=== PATIENT | male | born 1945 | race Caucasian/White ===

== ENCOUNTER 2017-07-20 09:53 | Inpatient (IN) | payer MEDICARE, BC ==
[2017-07-20] MEDS ORDERED: ASPIRIN 81 MG PO STA (10:19)
[2017-07-20] MEDS ORDERED: NITROGLYCERIN OINT 1 INCH/GM PACKET TOPICAL STA (10:19)
--- NOTE | 2017-07-20 10:21 | ED ---
General Adult HPI - General Chief complaint: Chest Pain Stated complaint: chest pain Time Seen by Provider: 07/20/17 10:00 Source: patient, RN notes reviewed Mode of arrival: wheelchair Limitations: no limitations - History of Present Illness Initial comments: This is a 71-year-old male who has past medical history of a CABG high blood pressure and high cholesterol. Patient comes in today because he woke up with chest pain radiated down both of his arms. Patient denies any diaphoresis. Patient denies shortness of breath. Patient denies nausea. Patient does state however this feels like the same pain he had prior to his bypass. Patient states he has not had any recent fever chills per patient denies any palpitations. Patient denies any dizziness lightheadedness or near syncopal episode. Patient denies any abdominal pain. Patient denies any vomiting or diarrhea. Patient denies any exacerbation of pain with movement. - Related Data Home Medications Medication Instructions Recorded Confirmed No Known Home Medications [No 12/28/14 12/28/14 Known Home Medications] Allergies Allergy/AdvReac Type Severity Reaction Status Date / Time No Known Allergies Allergy Verified 07/20/17 09:58 Review of Systems ROS Statement: Those systems with pertinent positive or pertinent negative responses have been documented in the HPI. ROS Other: All systems not noted in ROS Statement are negative. Past Medical History Past Medical History: Coronary Artery Disease (CAD), Chest Pain / Angina, Hyperlipidemia, Hypertension, Myocardial Infarction ([place]) History of Any Multi-Drug Resistant Organisms: None Reported Past Surgical History: Adenoidectomy, Appendectomy, Coronary Bypass/CABG, Tonsillectomy Past Psychological History: No Psychological Hx Reported Smoking Status: Never smoker Past Alcohol Use History: None Reported Past Drug Use History: None Reported General Exam - General Exam Comments Initial Comments: GENERAL: Patient is well-developed and well-nourished. Patient is nontoxic and well- hydrated and is in mild distress. ENT: Neck is soft and supple. No significant lymphadenopathy is noted. Oropharynx is clear. Moist mucous membranes. Neck has full range of motion without eliciting any pain. EYES: The sclera were anicteric and conjunctiva were pink and moist. Extraocular movements were intact and pupils were equal round and reactive to light. Eyelids were unremarkable. PULMONARY: Unlabored respirations. Good breath sounds bilaterally. No audible rales rhonchi or wheezing was noted. CARDIOVASCULAR: There is a regular rate and rhythm without any murmurs gallops or rubs. ABDOMEN: Soft and nontender with normal bowel sounds. No palpable organomegaly was noted. There is no palpable pulsatile mass. SKIN: Skin is clear with no lesions or rashes and otherwise unremarkable. NEUROLOGIC: Patient is alert and oriented x3. Cranial nerves II through XII are grossly intact. Motor and sensory are also intact. Normal speech, volume and content. Symmetrical smile. MUSCULOSKELETAL: Normal extremities with adequate strength and full range of motion. No lower extremity swelling or edema. No calf tenderness. LYMPHATICS: No significant lymphadenopathy is noted PSYCHIATRIC: Normal psychiatric evaluation. Normal interpersonal interactions appears functionally intact in deals appropriately with others. No signs of depression. No signs of anxiety. Limitations: no limitations Course Vital Signs 07/20/17 09:56 Temperature 97.4 F L Pulse Rate 55 L Respiratory 16 Rate Blood Pressure 195/89 O2 Sat by Pulse 100 Oximetry Medical Decision Making - Medical Decision Making EKG shows sinus bradycardia 53 bpm VA interval 184 QRS is 114 Q-T intervals 456 QTC is 427. Patient's EKG shows no ST segment elevation or depression or T wave abnormalities are noted. Patient's chest x-ray shows no acute abnormality. After patient was on oxygen and nitro paste she started to feel better. I started the patient on heparin because of his significant risk factors and his clinical presentation being similar to his previous pain when he had his bypass. I spoke with Dr. Thomas and he agreed to admit the patient admitted the patient. I consult cardiology and I continue the heparin Nitropaste and aspirin on the floor - Lab Data Result diagrams: 07/20/17 10:16 07/20/17 10:16 Lab Results 07/20/17 07/20/17 07/20/17 Range/Units 10:16 10:16 10:16 WBC 11.0 H (3.8-10.6) k/uL RBC 4.54 (4.30-5.90) m/uL Hgb 14.5 (13.0-17.5) gm/dL Hct 42.9 (39.0-53.0) % MCV 94.6 (80.0-100.0) fL MCH 32.1 (25.0-35.0) pg MCHC 33.9 (31.0-37.0) g/dL RDW 12.3 (11.5-15.5) % Plt Count 180 (150-450) k/uL Neutrophils % 80 % Lymphocytes % 12 % Monocytes % 6 % Eosinophils % 1 % Basophils % 0 % Neutrophils # 8.8 H (1.3-7.7) k/uL Lymphocytes # 1.3 (1.0-4.8) k/uL Monocytes # 0.6 (0-1.0) k/uL Eosinophils # 0.1 (0-0.7) k/uL Basophils # 0.0 (0-0.2) k/uL PT (9.0-12.0) sec INR (<1.2) APTT (22.0-30.0) sec Sodium 138 (137-145) mmol/L Potassium 4.0 (3.5-5.1) mmol/L Chloride 104 (98-107) mmol/L Carbon Dioxide 26 (22-30) mmol/L Anion Gap 8 mmol/L BUN 20 (9-20) mg/dL Creatinine 0.94 (0.66-1.25) mg/dL Est GFR (MDRD) Af Amer >60 (>60 ml/min/1.73 sqM) Est GFR (MDRD) Non-Af >60 (>60 ml/min/1.73 sqM) Glucose 70 L (74-99) mg/dL Calcium 9.2 (8.4-10.2) mg/dL Magnesium 1.8 (1.6-2.3) mg/dL Total Bilirubin 0.5 (0.2-1.3) mg/dL AST 21 (17-59) U/L ALT 19 L (21-72) U/L Alkaline Phosphatase 63 (38-126) U/L Total Creatine Kinase 39 L (55-170) U/L CK-MB (CK-2) 0.7 (0.0-2.4) ng/mL CK-MB (CK-2) Rel Index 1.8 Troponin I <0.012 (0.000-0.034) ng/mL Total Protein 7.0 (6.3-8.2) g/dL Albumin 4.0 (3.5-5.0) g/dL 07/20/17 Range/Units 10:16 WBC (3.8-10.6) k/uL RBC (4.30-5.90) m/uL Hgb (13.0-17.5) gm/dL Hct (39.0-53.0) % MCV (80.0-100.0) fL MCH (25.0-35.0) pg MCHC (31.0-37.0) g/dL RDW (11.5-15.5) % Plt Count (150-450) k/uL Neutrophils % % Lymphocytes % % Monocytes % % Eosinophils % % Basophils % % Neutrophils # (1.3-7.7) k/uL Lymphocytes # (1.0-4.8) k/uL Monocytes # (0-1.0) k/uL Eosinophils # (0-0.7) k/uL Basophils # (0-0.2) k/uL PT 10.9 (9.0-12.0) sec INR 1.1 (<1.2) APTT 24.7 (22.0-30.0) sec Sodium (137-145) mmol/L Potassium (3.5-5.1) mmol/L Chloride (98-107) mmol/L Carbon Dioxide (22-30) mmol/L Anion Gap mmol/L BUN (9-20) mg/dL Creatinine (0.66-1.25) mg/dL Est GFR (MDRD) Af Amer (>60 ml/min/1.73 sqM) Est GFR (MDRD) Non-Af (>60 ml/min/1.73 sqM) Glucose (74-99) mg/dL Calcium (8.4-10.2) mg/dL Magnesium (1.6-2.3) mg/dL Total Bilirubin (0.2-1.3) mg/dL AST (17-59) U/L ALT (21-72) U/L Alkaline Phosphatase (38-126) U/L Total Creatine Kinase (55-170) U/L CK-MB (CK-2) (0.0-2.4) ng/mL CK-MB (CK-2) Rel Index Troponin I (0.000-0.034) ng/mL Total Protein (6.3-8.2) g/dL Albumin (3.5-5.0) g/dL Critical Care Time Critical Care Time: Yes Total Critical Care Time: 35 Disposition Clinical Impression: Unstable angina pectoris Disposition: ADMITTED IP TO THIS HOSP Referrals: Arthur Acosta MD [Primary Care Provider] - 1-2 days Time of Disposition: 11:28
[2017-07-20 10:37] LABS: Basophils % (A) 0 %; CH 32.7; CHCM 34.7; Eosinophils # (A) 0.1 k/uL (0-0.7); Eosinophils % (A) 1 %; HCT 42.9 % (39.0-53.0); HGB 14.5 gm/dL (13.0-17.5); Luc # (Auto) 0.09; Luc % (Auto) 1; Lymphocytes # (A) 1.3 k/uL (1.0-4.8); Lymphocytes % (A) 12 %; MCH 32.1 pg (25.0-35.0); MCHC 33.9 g/dL (31.0-37.0); MCV 94.6 fL (80.0-100.0); Mean Platelet Volume 6.5; Monocytes # (A) 0.6 k/uL (0-1.0); Monocytes % (A) 6 %; Neutrophils # (A) 8.8 k/uL (1.3-7.7); Neutrophils % (A) 80 %; RBC 4.54 m/uL (4.30-5.90); RDW 12.3 % (11.5-15.5); WBC (Perox) 10.97
--- NOTE | 2017-07-20 10:45 | XR ---
EXAMINATION TYPE: XR chest 2V DATE OF EXAM: 07/20/2017 HISTORY: Chest Pain. REFERENCE: NONE. FINDINGS: There has been a midline sternotomy. The lungs are overinflated. The heart is mildly enlarged. There is some scarring or atelectasis at th e right upper lobe. Lungs otherwise clear. Pleural space are clear. IMPRESSION: 1. COPD. 2. MILD CARDIOMEGALY.
[2017-07-20 10:46] LABS: INR 1.1 (<1.2); Partial Thromboplastin Time 24.7 sec (22.0-30.0); Prothrombin Time 10.9 sec (9.0-12.0)
[2017-07-20 10:48] LABS: ALT 19 U/L (21-72); AST 21 U/L (17-59); Alkaline Phosphatase 63 U/L (38-126); Anion Gap 8 mmol/L; Blood Urea Nitrogen 20 mg/dL (9-20); Calcium 9.2 mg/dL (8.4-10.2); Carbon Dioxide 26 mmol/L (22-30); Chloride 104 mmol/L (98-107); Glucose 70 mg/dL (74-99); Magnesium 1.8 mg/dL (1.6-2.3); Non-African American GFR(MDRD) >60 (>60 ml/min/1.73 sqM); Sodium 138 mmol/L (137-145); Total Bilirubin 0.5 mg/dL (0.2-1.3)
[2017-07-20 10:57] LABS: Creatine Kinase 39 U/L (55-170)
[2017-07-20 11:10] LABS: Creatine Kinase MB 0.7 ng/mL (0.0-2.4); Troponin I <0.012 ng/mL (0.000-0.034)
[2017-07-20] MEDS ORDERED: HEPARIN SODIUM,PORCINE 5,000 UNIT/ML 1 ML VIAL IV ONE (11:27)
[2017-07-20] MEDS ORDERED: NITROGLYCERIN SL TABS 0.4 MG TAB SUBLINGUAL PRN (11:29)
[2017-07-20] MEDS ORDERED: HEPARIN SODIUM,PORCINE/D5W PMX 25,000 UNIT in DEXTROSE/WATER 1 500ML.BAG IV SCH (11:30)
[2017-07-20] MEDS ORDERED: hydrALAZINE HCL 20 MG/ML 1 ML VIAL IVP STA (12:17)
[2017-07-20 16:53] LABS: Creatine Kinase 41 U/L (55-170)
[2017-07-20 17:06] LABS: Creatine Kinase MB 0.6 ng/mL (0.0-2.4); Troponin I <0.012 ng/mL (0.000-0.034)
[2017-07-20] MEDS: NITROGLYCERIN OINT 1 INCH/GM PACKET TOPICAL SCH ×2 (18:31→23:59)
[2017-07-20] MEDS ORDERED: HEPARIN SODIUM,PORCINE 5,000 UNIT/ML 1 ML VIAL IV PRN (20:40)
[2017-07-20 23:06] LABS: Creatine Kinase 57 U/L (55-170)
[2017-07-20 23:20] LABS: Creatine Kinase MB 0.8 ng/mL (0.0-2.4); Troponin I <0.012 ng/mL (0.000-0.034)
[2017-07-21] MEDS: NITROGLYCERIN OINT 1 INCH/GM PACKET TOPICAL SCH ×2 (06:17→11:57)
[2017-07-21] MEDS ORDERED: NON-FORMULARY DRUG (Aspirin Ec 81 MG) PO SCH (09:00)
[2017-07-21] MEDS ORDERED: LISINOPRIL-HCTZ 20-12.5 MG 1 EACH TAB PO SCH (09:00)
[2017-07-21] MEDS ORDERED: AMINOPHYLLINE 500 MG/20 ML VIAL IV PRN (09:56)
[2017-07-21] MEDS ORDERED: REGADENOSON 0.4 MG/5 ML SYRINGE IV ONE (09:56)
--- NOTE | 2017-07-21 10:12 | P.CRDCN ---
History of Present Illness Consult date: 07/21/17 History of present illness: This is a pleasant 71-year-old male with past medical history significant for coronary artery disease with subsequent three-vessel bypass in the s, hyperlipidemia and hypertension. He presents to the hospital with complaints of right sided chest pain. He states when he woke up yesterday the pain was there and radiated down both arms. He denies associated shortness of breath, nausea, dizziness, palpitations or diaphoresis. He says that his vision felt very cloudy as well. He states the pain persisted all day yesterday and was still there when he went to sleep last night. At the time of my examination he is chest pain-free. The pain is not reproducible and is not associated with inspiration. He states he used to follow-up with Dr. Olsen but has not seen a automotive brake technician or had cardiac evaluation in the previous 5 years at least. At the time of my examination he complains of ongoing mild chest discomfort. EKG reveals sinus bradycardia with incomplete right bundle branch block. Chest xray reveals COPD and cardiomegaly. Cardiac enzymes negative x3. WBC 11, potassium 4.0, magnesium 1.8, LDL 74, HDL 44, triglycerides 63, total cholesterol 63. Blood pressure 183/82 with heart rate 59. Blood pressure has been consistently elevated since admission. Cardiac medications include lopressor 25 mg daily, zestroretic 20/12.5 daily, zocor 10 and aspirin 81 mg. Review of Systems CONSTITUTIONAL: Denies fever. Denies chills. EYES: Complains of blurred vision, resolved. Denies vision changes. Denies eye pain. EARS, NOSE, MOUTH & THROAT: Denies headache. Denies sore throat. Denies ear pain. CARDIOVASCULAR: Complains of right sided chest pain. Denies shortness of breath. Denies orthopnea. Denies PND. Denies palpitations. RESPIRATORY: Denies cough. GASTROINTESTINAL: Denies abdominal pain. Denies diarrhea. Denies constipation. Denies nausea. Denies vomitng. MUSCULOSKELETAL: Denies myalgias. INTEGUMENTARY: Denies pruitis. Denies rash. NEUROLOGIC: Denies numbness. Denies tingling. Denies weakness. PSYCHIATRIC: Denies anxiety. Denies depression. ENDOCRINE: Denies fatigue. Denies weight change. Denies polydipsia. Denies polyurina. GENITOURINARY: Denies burning, hematuria or urgency with micturation. HEMATOLOGIC: Denies history of anemia. Denies bleeding. Past Medical History Past Medical History: Coronary Artery Disease (CAD), Chest Pain / Angina, Hyperlipidemia, Hypertension History of Any Multi-Drug Resistant Organisms: None Reported Past Surgical History: Adenoidectomy, Appendectomy, Coronary Bypass/CABG, Tonsillectomy Additional Past Surgical History / Comment(s): 3 vessel CABG Past Anesthesia/Blood Transfusion Reactions: No Reported Reaction Additional Past Anesthesia/Blood Transfusion Reaction / Comment(s): no blood transfusion before Past Psychological History: No Psychological Hx Reported Smoking Status: Never smoker Past Alcohol Use History: None Reported Past Drug Use History: None Reported - Past Family History Father Additional Family Medical History / Comment(s): Brain Anurysm Mother Family Medical History: Dementia Additional Family Medical History / Comment(s): per pt a "bowel busted" Medications and Allergies Home Medications Medication Instructions Recorded Confirmed Type Aspirin EC [Ecotrin Low Dose] 81 mg PO DAILY 07/20/17 07/20/17 History Lisinopril-Hctz 20-12.5 mg 1 tab PO DAILY 07/20/17 07/20/17 History [Zestoretic 20-12.5] Metoprolol Tartrate [Lopressor] 25 mg PO DAILY 07/20/17 07/20/17 History Simvastatin [Zocor] 10 mg PO DAILY 07/20/17 07/20/17 History Allergies Allergy/AdvReac Type Severity Reaction Status Date / Time No Known Allergies Allergy Verified 07/20/17 11:44 Physical Exam Vitals: Vital Signs Temp Pulse Pulse Resp BP BP Pulse Ox 07/21/17 07:44 98.9 F 59 L 18 183/82 96 07/21/17 04:00 18 07/21/17 03:50 97.9 F 57 L 18 163/77 96 07/21/17 00:00 18 07/20/17 23:51 97.9 F 61 18 159/77 98 07/20/17 20:00 98.3 F 63 18 179/82 99 07/20/17 16:00 97.7 F 67 16 149/77 99 07/20/17 14:20 97.8 F 63 14 165/72 99 07/20/17 14:01 97.4 F L 52 L 18 188/79 100 07/20/17 13:24 52 L 18 188/79 07/20/17 13:00 50 L 18 188/79 07/20/17 12:38 48 L 18 219/94 100 07/20/17 12:08 50 L 18 205/108 100 07/20/17 09:56 97.4 F L 55 L 16 195/89 100 Intake and Output 07/20/17 07/21/17 07/21/17 22:59 06:59 14:59 Intake Total 260.586 Balance 260.586 Intake: Intake, IV Titration 160.586 Amount Heparin Sodium,Porcine/ 160.586 D5w Pmx 25,000 unit In Dextrose/Water 1 500ml. bag @ 11.6 UNITS/KG/HR 19 .99 mls/hr IV .Q24H [facility] Rx#:[id number] Oral 100 Other: Voiding Method Toilet Toilet # Voids 1 1 GENERAL: This is a 71-year-old male in no apparent distress at the time of my examination. HEENT: Head is atraumatic, normocephalic. Pupils are equal, round. Sclerae anicteric. Conjunctivae are clear. Mucous membranes of the mouth are moist. Neck is supple. There is no jugular venous distention. No carotid bruit is heard. LUNGS: Clear to auscultation no wheezes, rales or rhonchi. No chest wall tenderness is noted on palpation or with deep breathing. HEART: Regular rate and rhythm without murmurs, rubs or gallops. S1 and S2 heard. ABDOMEN: Soft, nontender. Bowel sounds are heard. No organomegaly noted. EXTREMITIES: 2+ peripheral pulses with no evidence of peripheral edema and no calf tenderness noted. NEUROLOGIC: Patient is awake, alert and oriented x3. Results 07/20/17 10:16 07/20/17 10:16 Cardiac Enzymes 07/20/17 07/20/17 07/20/17 Range/Units 10:16 10:16 16:25 AST 21 (17-59) U/L CK-MB (CK-2) 0.7 0.6 (0.0-2.4) ng/mL Troponin I <0.012 <0.012 (0.000-0.034) ng/mL 07/20/17 Range/Units 22:20 AST (17-59) U/L CK-MB (CK-2) 0.8 (0.0-2.4) ng/mL Troponin I <0.012 (0.000-0.034) ng/mL Coagulation 07/20/17 07/20/17 07/21/17 Range/Units 10:16 18:33 02:51 PT 10.9 (9.0-12.0) sec APTT 24.7 39.6 H 70.1 H (22.0-30.0) sec Lipids 07/21/17 Range/Units 02:51 Triglycerides 63 (<150) mg/dL Cholesterol 131 (<200) mg/dL HDL Cholesterol 44 (40-60) mg/dL CBC 07/20/17 Range/Units 10:16 WBC 11.0 H (3.8-10.6) k/uL RBC 4.54 (4.30-5.90) m/uL Hgb 14.5 (13.0-17.5) gm/dL Hct 42.9 (39.0-53.0) % Plt Count 180 (150-450) k/uL Comprehensive Metabolic Panel 07/20/17 Range/Units 10:16 Sodium 138 (137-145) mmol/L Potassium 4.0 (3.5-5.1) mmol/L Chloride 104 (98-107) mmol/L Carbon Dioxide 26 (22-30) mmol/L BUN 20 (9-20) mg/dL Creatinine 0.94 (0.66-1.25) mg/dL Glucose 70 L (74-99) mg/dL Calcium 9.2 (8.4-10.2) mg/dL AST 21 (17-59) U/L ALT 19 L (21-72) U/L Alkaline Phosphatase 63 (38-126) U/L Total Protein 7.0 (6.3-8.2) g/dL Albumin 4.0 (3.5-5.0) g/dL Current Medications Generic Name Dose Route Start Last Admin Trade Name Freq PRN Reason Stop Dose Admin Aspirin 325 mg 07/21/17 09:00 Aspirin PO DAILY [facility] Atorvastatin Calcium 10 mg 07/21/17 09:00 Lipitor PO DAILY [facility] Lisinopril/HCTZ 1 each 07/21/17 09:00 Zestoretic 20-12.5 PO DAILY [facility] Heparin Sodium (Porcine) 0 unit 07/20/17 20:40 07/20/17 20:48 Heparin IV 4,000 unit PER PROTOCOL PRN Administration Low PTT Protocol Heparin Sodium/Dextrose 25,000 500 mls @ 19.99 mls/hr 07/20/17 11:30 20:49 unit/ IV Solution IV 14.73 units/kg/hr .Q24H [facility] 25.4 mls/hr Protocol Titration 11.6 UNITS/KG/HR Metoprolol Tartrate 25 mg 07/21/17 09:00 Lopressor PO DAILY [facility] Nitroglycerin 1 inch 07/20/17 18:00 07/20/17 23:59 Nitro-Bid Oint TOPICAL 1 inch Q6HR [facility] Administration Nitroglycerin 0.4 mg 07/20/17 11:29 Nitrostat SUBLINGUAL Q5M PRN Chest Pain Intake and Output 07/20/17 07/21/17 07/21/17 22:59 06:59 14:59 Intake Total 260.586 Balance 260.586 Intake: Intake, IV Titration 160.586 Amount Heparin Sodium,Porcine/ 160.586 D5w Pmx 25,000 unit In Dextrose/Water 1 500ml. bag @ 11.6 UNITS/KG/HR 19 .99 mls/hr IV .Q24H [facility] Rx#:[id number] Oral 100 Other: Voiding Method Toilet Toilet # Voids 1 1 07/20/17 10:16 07/20/17 10:16 Assessment and Plan Assessment: ASSESSMENT 1. Unstable angina 2. Hypertension, uncontrolled 3. Hyperlipidemia controlled on Zocor 4. Known coronary artery disease with history of triple vessel bypass PLAN Obtain 2-D echocardiogram and Doppler study to assess cardiac structure/ function and Lexiscan Cardiolite stress test to evaluate for an acute coronary event. Increase zestoretic and continue with lopressor at current dose. May consider amlopdipine if no response from increased zestoretic. Nurse Practitioner note has been reviewed, I agree with a documented findings and plan of care. Patient was seen and examined.
--- NOTE | 2017-07-21 10:51 | ECHOF ---
Referral Reason:chest pain MEASUREMENTS -------- HEIGHT: 185.4 cm WEIGHT: 91.6 kg BP: 183/82 RVIDd: 3.4 cm (< 3.3) IVSd: 1.1 cm (0.6 - 1.1) LVIDd: 5.4 cm (3.9 - 5.3) LVPWd: 1.1 cm (0.6 - 1.1) IVSs: 1.7 cm LVIDs: 3.8 cm LVPWs: 1.8 cm LAESV Index (A-L): 21.81 ml/m Ao Diam: 3.9 cm (2.0 - 3.7) AV Cusp: 2.0 cm (1.5 - 2.6) LA Diam: 3.3 cm (2.7 - 3.8) MV E Dennis: 0.47 m/s MV DecT: 332 ms MV A Dennis: 0.94 m/s MV E/A Ratio: 0.50 RAP: 5.00 mmHg RVSP: 9.06 mmHg FINDINGS -------- Sinus rhythm. This was a technically adequate study. The left ventricular size is normal. There is borderline concentric left ventricular hypertrophy. Overall left ventricular systolic function is normal with, an EF between 55 - 60 %. The right ventricle is normal in size and function. Normal LA size by volume 22+/-6 ml/m2. The right atrium is normal in size. Aortic valve is trileaflet and is mildly thickened. There is no evidence of aortic regurgitation. There is no evidence of aortic stenosis. The mitral valve leaflets are mildly thickened. There is trace mitral regurgitation. Trace tricuspid regurgitation present. Right ventricular systolic pressure is normal at < 35 mmHg. There is no evidence of pulmonary hypertension. The pulmonic valve was not well visualized. The aortic root size is normal. IVC Not well visulized. The pericardium is normal. There is no pericardial effusion. CONCLUSIONS -------- 1. Sinus rhythm. 2. Trace tricuspid regurgitation present. 3. Right ventricular systolic pressure is normal at < 35 mmHg. 4. There is no evidence of pulmonary hypertension. 5. The pulmonic valve was not well visualized. 6. The aortic root size is normal. 7. IVC Not well visulized. 8. There is no pericardial effusion. 9. This was a technically adequate study. 10. The left ventricular size is normal. 11. There is borderline concentric left ventricular hypertrophy. 12. Overall left ventricular systolic function is normal with, an EF between 55 - 60 %. 13. Normal LA size by volume 22+/-6 ml/m2. 14. Aortic valve is trileaflet and is mildly thickened. 15. The mitral valve leaflets are mildly thickened. 16. There is trace mitral regurgitation. ANALYST COMPETITIVE INTELLIGENCE: Samson Rosado RDCS
[2017-07-21 11:14] LABS: Hemoglobin A1C 5.1 % (4.2-6.1)
[2017-07-21] MEDS: METOPROLOL TARTRATE 25 MG TAB PO SCH (12:51)
[2017-07-21] MEDS: ASPIRIN 325 MG TAB PO SCH (12:51)
[2017-07-21] MEDS: ATORVASTATIN 10 MG TAB PO SCH (12:52)
--- NOTE | 2017-07-21 13:51 | EST ---
EXERCISE STRESS DATE OF SERVICE: 07/21/2017 AGE: 71 SEX: Male HT: 73" WT: 202 pounds PROTOCOL: Lexiscan Cardiolite STAGE: DURATION OF EXERCISE: HEART RATE REST: 74 BLOOD PRESSURE REST: 207/97 MAXIMUM HEART RATE ACHIEVED: 105 MAXIMUM BLOOD PRESSURE: 207/97 85% MPHR: 100% MPHR: METS: INDICATIONS: Chest pain. STRESS DATA: Pretesting physical examination showed a heart rate of 74, pressures of 207/97 mmHg. Baseline EKG showed sinus mechanism. The patient was given 0.4 mg of Lexiscan over 15 seconds per protocol. The max heart rate was 105 beats per minute and maximum pressure was 207/97 mmHg. Clinically, the patient did not have any symptoms of chest pain or discomfort and EKG did not show any significant ST or T-wave abnormalities consistent with ischemia. CONCLUSION: 1. Nondiagnostic electrocardiogram stress testing in response to Lexiscan. 2. Please follow up on the Cardiolite portion on a separate report from the radiology department. MMODL / IJN: [id number] /
--- NOTE | 2017-07-21 14:53 | NM ---
EXAMINATION TYPE: NM stress lexiscan cardiolite DATE OF EXAM: 07/21/2017 COMPARISON: NONE HISTORY: Chest pain TECHNIQUE: After the intravenous administration of 10.2 mCi Tc 99m Sestamibi - Cardiolite resting SP ECT images acquired 45 minutes post injection. The patient received 0.4mg Lexiscan, 27.9 mCi Tc 99m Sestamibi - Stress images obtained [address] injection FINDINGS: Review of stress and rest SPECT images demonstrates decreased radiopharmaceutical uptake on stress im ages along the inferior wall of the left ventricle as compared to rest images. Gated analysis shows normal wall motion with an estimated left ventricular ejection fraction of 48 %. 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
[2017-07-21] MEDS ORDERED: ATORVASTATIN 80 MG TAB PO STA (15:11)
[2017-07-21] MEDS ORDERED: SODIUM CHLORIDE 0.9% 1,000 ML in EMPTY BAG 1 BAG IV ONE (15:11)
[2017-07-21] MEDS ORDERED: ALPRAZolam 0.25 MG TAB PO PRN (15:11)
[2017-07-21] MEDS ORDERED: ALPRAZolam 0.5 MG TAB PO PRN (15:11)
--- NOTE | 2017-07-21 15:17 | P.HPIM ---
History of Present Illness H&P Date: 07/21/17 Chief Complaint: Chest pain This is a 71-year-old male patient of Dr. Acosta and rubber grinder is Dr. Olsen in the past with a past medical history of hypertension, hyperlipidemia, coronary artery disease with previous 3 vessel CABG. Patient complains of right-sided chest pain that started while he was watching TV. He denies any nausea, dizziness. He points to the right lower rib cage area. He denies any abdominal pain. He states he had vision changes as well. Patient was placed in the observation unit. Patient has been seen by rubber grinder and stress test ordered. Troponins have been negative on 3 draws. Triglycerides 63 , cholesterol 131, LDL 74 and HDL 44. TSH 0.532. Echocardiogram reveals EF of 55-60%, borderline concentric left hypertrophy, no pulmonary hypertension, trace mitral regurgitation. 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 Heart catheterization is scheduled for tomorrow with Dr. Miller. Review of Systems All systems: negative Constitutional: Denies anorexia, Denies chills, Denies fatigue, Denies fever, Denies lethargy, Denies malaise, Denies poor appetite, Denies sweats, Denies weakness, Denies weight loss Eyes: denies blurred vision, denies pain Ears, nose, mouth and throat: Denies dental pain, Denies dysphagia, Denies headache, Denies mouth pain, Denies sore throat, Denies vertigo Cardiovascular: Reports chest pain, Denies decreased exercise tolerance, Denies dyspnea on exertion, Denies edema, Denies leg edema, Denies lightheadedness, Denies shortness of breath, Denies syncope Respiratory: Denies cough, Denies cough with sputum, Denies dyspnea, Denies excessive sputum, Denies hemoptysis, Denies home oxygen, Denies pain on inspiration, Denies wheezing Gastrointestinal: Denies abdominal pain, Denies diarrhea, Denies nausea, Denies vomiting Genitourinary: Denies dysuria, Denies urinary frequency Musculoskeletal: Denies myalgias Integumentary: Denies pruritus, Denies rash Neurological: Denies numbness, Denies weakness Psychiatric: Denies anxiety, Denies depression Endocrine: Denies fatigue, Denies weight change Past Medical History Past Medical History: Coronary Artery Disease (CAD), Chest Pain / Angina, Hyperlipidemia, Hypertension History of Any Multi-Drug Resistant Organisms: None Reported Past Surgical History: Adenoidectomy, Appendectomy, Coronary Bypass/CABG, Tonsillectomy Additional Past Surgical History / Comment(s): 3 vessel CABG Past Anesthesia/Blood Transfusion Reactions: No Reported Reaction Additional Past Anesthesia/Blood Transfusion Reaction / Comment(s): no blood transfusion before Past Psychological History: No Psychological Hx Reported Smoking Status: Never smoker Past Alcohol Use History: None Reported Past Drug Use History: None Reported - Past Family History Father Additional Family Medical History / Comment(s): Brain Anurysm Mother Family Medical History: Dementia Additional Family Medical History / Comment(s): per pt a "bowel busted" Medications and Allergies Home Medications Medication Instructions Recorded Confirmed Type Aspirin EC [Ecotrin Low Dose] 81 mg PO DAILY 07/20/17 07/20/17 History Lisinopril-Hctz 20-12.5 mg 1 tab PO DAILY 07/20/17 07/20/17 History [Zestoretic 20-12.5] Metoprolol Tartrate [Lopressor] 25 mg PO DAILY 07/20/17 07/20/17 History Simvastatin [Zocor] 10 mg PO DAILY 07/20/17 07/20/17 History Allergies Allergy/AdvReac Type Severity Reaction Status Date / Time No Known Allergies Allergy Verified 07/20/17 11:44 Physical Exam Vitals: Vital Signs Temp Pulse Pulse Resp BP BP Pulse Ox 07/21/17 08:00 18 07/21/17 07:44 98.9 F 59 L 18 183/82 96 07/21/17 04:00 18 07/21/17 03:50 97.9 F 57 L 18 163/77 96 07/21/17 00:00 18 07/20/17 23:51 97.9 F 61 18 159/77 98 07/20/17 20:00 98.3 F 63 18 179/82 99 07/20/17 16:00 97.7 F 67 16 149/77 99 07/20/17 14:20 97.8 F 63 14 165/72 99 07/20/17 14:01 97.4 F L 52 L 18 188/79 100 07/20/17 13:24 52 L 18 188/79 07/20/17 13:00 50 L 18 188/79 07/20/17 12:38 48 L 18 219/94 100 07/20/17 12:08 50 L 18 205/108 100 Intake and Output 07/20/17 07/21/17 07/21/17 22:59 06:59 14:59 Intake Total 260.586 Balance 260.586 Intake: Intake, IV Titration 160.586 Amount Heparin Sodium,Porcine/ 160.586 D5w Pmx 25,000 unit In Dextrose/Water 1 500ml. bag @ 11.6 UNITS/KG/HR 19 .99 mls/hr IV .Q24H [facility] Rx#:[id number] Oral 100 Other: Voiding Method Toilet Toilet Toilet # Voids 1 1 Gen: This is a 71-year-old male. He is seen in the stress lab and appears to be in no acute distress. HEENT: Head is atraumatic, normocephalic. Pupils equal, round. Sclerae is anicteric. NECK: Supple. No JVD. No lymphadenopathy. No thyromegaly. LUNGS: Clear to auscultation. No wheezes or rhonchi. No intercostal retractions. HEART: Regular rate and rhythm. No murmur. ABDOMEN: Soft. Bowel sounds are present. No masses. No tenderness. EXTREMITIES: No pedal edema. No calf tenderness. Dorsalis pedis +2 bilaterally. NEUROLOGICAL: Patient is awake, alert and oriented x3. Cranial nerves 2 through 12 are grossly intact. Results CBC & Chem 7: 07/20/17 10:16 07/20/17 10:16 Labs: Abnormal Lab Results - Last 24 Hours (Table) 07/20/17 07/20/17 07/21/17 Range/Units 16:25 18:33 02:51 APTT 39.6 H 70.1 H (22.0-30.0) sec Total Creatine Kinase 41 L (55-170) U/L Thrombosis Risk Factor Assmnt - DVT/VTE Prophylaxis DVT/VTE Prophylaxis: Pharmacologic Prophylaxis ordered - Choose All That Apply Any of the Below Risk Factors Present?: Yes Each Factor Represents 1 point: Obesity (BMI >25) Other Risk Factors: Yes Each Risk Factor Represents 2 Points: Age 61-74 years Thrombosis Risk Factor Assessment Total Risk Factor Score: 3 Thrombosis Risk Factor Assessment Level: Moderate Risk Assessment and Plan Plan: 1. Chest pain with negative troponins and positive stress test. Heart catheterization scheduled tomorrow with Dr. Miller. Continue aspirin, Lipitor, Lopressor. 2. Hypertension. Continue Zestoretic 2 daily, metoprolol 25 daily. 3. Hyperlipidemia. Continue Lipitor. 4. History of coronary artery disease status post CABG. 5. DVT prophylaxis. Patient is on heparin. 6. DVT prophylaxis. Pepcid. Patient will be admitted to the hospital for a minimum of 2 night stay. Discharge plan: Return home Impression and plan of care have been directed as dictated by the signing physician. Ivette Griggs nurse practitioner acting as scribe for signing physician.
[2017-07-22] MEDS ORDERED: SODIUM CHLORIDE 0.9% 1,000 ML in EMPTY BAG 1 BAG IV ONE (06:00)
[2017-07-22] MEDS ORDERED: ATORVASTATIN 80 MG TAB PO ONE (06:00)
[2017-07-22] MEDS: METOPROLOL TARTRATE 25 MG TAB PO SCH (06:11)
[2017-07-22] MEDS: LISINOPRIL-HCTZ 20-12.5 MG 1 EACH TAB PO SCH (06:11)
[2017-07-22] MEDS: ASPIRIN 325 MG TAB PO SCH (06:11)
[2017-07-22] MEDS ORDERED: amLODIPine 5 MG TAB PO STA (06:51)
[2017-07-22] MEDS: ATORVASTATIN 10 MG TAB PO SCH (07:05)
[2017-07-22] MEDS ORDERED: LIDOCAINE 2% INJ 20 MG/ML (20 ML MDV) ONE (09:49)
[2017-07-22] MEDS ORDERED: MIDAZOLAM 2 MG/2 ML VIAL ONE (09:55)
[2017-07-22] MEDS ORDERED: SODIUM CHLORIDE 0.9% 1,000 ML IV ONE (09:59)
[2017-07-22] MEDS ORDERED: MIDAZOLAM 2 MG/2 ML VIAL IV ONE (10:12)
[2017-07-22] MEDS ORDERED: fentaNYL (PF) 50 MCG/ML 2 ML AMP IV ONE (10:12)
[2017-07-22] MEDS ORDERED: fentaNYL (PF) 50 MCG/ML 2 ML AMP ONE (10:12)
[2017-07-22] MEDS ORDERED: LIDOCAINE 2% INJ 20 MG/ML SQ ONE ×2 (10:15→10:16)
[2017-07-22] MEDS ORDERED: hydrALAZINE HCL 20 MG/ML 1 ML VIAL ONE (10:25)
[2017-07-22] MEDS ORDERED: hydrALAZINE HCL 20 MG/ML 1 ML VIAL IV ONE (10:27)
[2017-07-22] MEDS ORDERED: BIVALIRUDIN 250 MG in SODIUM CHLORIDE 0.9% 50 ML IV ONE (10:43)
[2017-07-22] MEDS ORDERED: BIVALIRUDIN BOLUS 250 MG/50 ML IV ONE (10:43)
[2017-07-22] MEDS ORDERED: CLOPIDOGREL 75 MG TAB ONE (10:55)
[2017-07-22] MEDS ORDERED: CLOPIDOGREL 75 MG TAB PO ONE (10:57)
[2017-07-22] MEDS ORDERED: NITROGLYCERIN 1000MCG/10ML SYRINGE INTRACORON ONE (10:57)
[2017-07-22] MEDS ORDERED: IOHEXOL 350 MG/ML 125ML BOTTLE INJ ONE (11:16)
[2017-07-22] MEDS ORDERED: RX INFO: IV CONTRAST WAS GIVEN 1 EACH MISC MISCELLANE PRN (11:31)
[2017-07-22] MEDS ORDERED: ATROPINE SULFATE 0.1 MG/ML 10ML SYRINGE IV PRN (11:31)
[2017-07-22] MEDS ORDERED: ZOLPIDEM 5 MG TAB PO PRN (11:31)
[2017-07-22] MEDS ORDERED: MAG HYDROX/AL HYDROX/SIMETH 30 ML CUP PO PRN (11:31)
[2017-07-22] MEDS ORDERED: NITROGLYCERIN SL TABS 0.4 MG TAB SUBLINGUAL PRN (11:31)
[2017-07-22] MEDS ORDERED: SODIUM CHLORIDE 0.9% 1,000 ML IV SCH (11:45)
--- NOTE | 2017-07-22 12:25 | CC ---
CARDIAC CATHETERIZATION REPORT DATE OF SERVICE: 07/22/2017 PERFORMING PHYSICIAN: Keagan Miller MD, human services care specialist. PROCEDURE PERFORMED: 1. Selective left and right coronary angiogram. 2. SVG to RCA angiogram. 3. SVG to diagonal angiogram. 4. Left internal mammary artery to LAD angiogram. 5. An aortic root angiogram. 6. Attempted IVUS of the left main coronary artery. 7. Left heart catheterization. 8. Successful stenting of protected left main and proximal left circumflex coronary artery using 3.0 x 16 mm Promus Premier drug-eluting stent with good angiographic results. INDICATION: This is a pleasant 71-year-old gentleman who is known to have coronary artery disease and prior coronary artery bypass grafting presented to the hospital complaining of chest discomfort. He underwent myocardial perfusion imaging stress test and that showed inferior ischemia. In view of that, he was brought today to undergo a heart catheterization. APPROACH: Right common femoral artery. COMPLICATION: None. LEVEL OF SEDATION: Moderate with sedation length of 61 minutes. PROCEDURE DESCRIPTION: After obtaining informed consent, the patient was brought to the cardiac laborer shellfish processing. The right common femoral artery was cannulated using micropuncture technique and a micropuncture wire passed easily. Subsequently I did place a 6-Korean sheath in the right common femoral artery. After that, I did selective left and right coronary angiogram using JL4 and JR4 catheters. I did a ZAMORA to LAD angiogram and SVG to diagonal angiogram using the JR4 catheter. The SVG to RCA angiogram was performed using multipurpose catheter. After that, I did an aortic root angiogram using a 6-Korean pigtail catheter as well as left heart catheterization. After that, I did attempt IVUS the left main. After that, I did decide to stent the left main. Please see a separate paragraph for that. SELECTIVE CORONARY ANGIOGRAM: 1. The left main appeared to have a lesion in the midportion in the range of 60%. The left main continues as the left circumflex and ramus intermedius, and there is no LAD which seems to be occluded by the ostium. 2. The left circumflex is a large caliber vessel and it is a nondominant vessel. The left circumflex is a large caliber vessel with mild to moderate diffuse disease only. 3. The ramus intermedius is a small to medium caliber vessel with mild disease only. 4. The LAD is 100% occluded by the ostium. CORONARY BYPASS ANGIOGRAM: 1. The SVG to diagonal is patent and it does feed the LAD as well. 2. The ZAMORA to LAD is atrophic because of the good flow in the SVG to diagonal. 3. The SVG to RCA is patent as well. AORTIC ROOT ANGIOGRAM: The aortic root angiogram was performed in the ESTONIAN projection using a power injection. I was able to opacify the SVG to diagonal and SVG to RCA without any other SVGs seen. HEMODYNAMICS: The left ventricular end-diastolic pressure was 12 mmHg. No gradient was seen across the aortic valve. PCI OF THE LEFT MAIN: Anticoagulation was initiated using Angiomax. We subsequently took JL4 short-tip guiding catheter and left main was engaged. The left main was wired using a whisper wire and I was able to advance the wire to the left circumflex. I attempted advancing an IVUS catheter, but the catheter will not make the turn. At that point, I decided to stent the left main. I did balloon angioplasty using 3.0 x 12 mm balloon then I was able to deploy 3.0 x 16 mm Promus Premier drug-eluting stent where the stent was positioned under fluoroscopy guidance and deployed under 16 atmospheres for 20 seconds. The following angiogram showed good angiographic results without perforation and without dissection with a good flow. The procedure was completed without any complication. CONCLUSIONS: 1. Severe triple-vessel coronary artery disease. 2. Patent ZAMORA to LAD. 3. Patent SVG to diagonal. 4. Patent SVG to RCA. 5. Successful stenting of the left main and proximal left circumflex using 3.0 x 16 mm Promus Premier drug-eluting stent with good angiographic results. POSTPROCEDURE MANAGEMENT: 1. Maximize medical treatment. 2. Follow up with the patient. MMODL / IJN: [id number] /
[2017-07-22 13:41] VITALS: BMI 25.8
--- NOTE | 2017-07-22 14:53 | P.PN ---
Subjective Progress Note Date: 07/22/17 This is a 71-year-old male patient of Dr. Acosta and med dir is Dr. Olsen in the past with a past medical history of hypertension, hyperlipidemia, coronary artery disease with previous 3 vessel CABG. Patient complains of right-sided chest pain that started while he was watching TV. He denies any nausea, dizziness. He points to the right lower rib cage area. He denies any abdominal pain. He states he had vision changes as well. Patient was placed in the observation unit. Patient has been seen by med dir and stress test ordered. Troponins have been negative on 3 draws. Triglycerides 63 , cholesterol 131, LDL 74 and HDL 44. TSH 0.532. Echocardiogram reveals EF of 55-60%, borderline concentric left hypertrophy, no pulmonary hypertension, trace mitral regurgitation. 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 Heart catheterization is scheduled for tomorrow with Dr. Miller. 07/22: Triglycerides 63, cholesterol 131, LDL 74, HDL 44. TSH 0.532. A shunt underwent heart catheterization and stent placement of the left main and left circumflex coronary arteries today with Dr. crystal. Recommendations for medical management. Anticipate discharge home tomorrow Objective - Vital Signs Vital signs: Vital Signs Temp 97.4 F L 07/22/17 07:50 Pulse 62 07/22/17 07:50 Resp 16 07/22/17 07:50 BP 152/78 07/22/17 07:50 Pulse Ox 94 L 07/22/17 09:05 Intake & Output 07/21/17 07/22/17 07/22/17 18:59 06:59 18:59 Intake Total 360 Balance 360 Weight 88.9 kg Intake: Oral 360 Other: Voiding Method Toilet Toilet Toilet - Exam Gen: This is a 71-year-old male. He is seen in the stress lab and appears to be in no acute distress. HEENT: Head is atraumatic, normocephalic. Pupils equal, round. Sclerae is anicteric. NECK: Supple. No JVD. No lymphadenopathy. No thyromegaly. LUNGS: Clear to auscultation. No wheezes or rhonchi. No intercostal retractions. HEART: Regular rate and rhythm. No murmur. ABDOMEN: Soft. Bowel sounds are present. No masses. No tenderness. EXTREMITIES: No pedal edema. No calf tenderness. Dorsalis pedis +2 bilaterally. NEUROLOGICAL: Patient is awake, alert and oriented x3. Cranial nerves 2 through 12 are grossly intact. - Labs CBC & Chem 7: 07/20/17 10:16 07/20/17 10:16 Assessment and Plan Plan: 1. Chest pain secondary to coronary artery disease status post heart catheterization and stents. Continue aspirin, Lipitor, Lopressor. Patient started on Plavix. 2. Hypertension. Continue Zestoretic 2 daily, metoprolol 25 daily. 3. Hyperlipidemia. Continue Lipitor. 4. History of coronary artery disease status post CABG. 5. DVT prophylaxis. Patient is on heparin. 6. DVT prophylaxis. Pepcid. Discharge plan: Return home on Friday Impression and plan of care have been directed as dictated by the signing physician. Ivette Griggs nurse practitioner acting as scribe for signing physician.
[2017-07-22 15:32] VITALS: RESP 16
[2017-07-23 06:47] LABS: Non-African American GFR(MDRD) >60 (>60 ml/min/1.73 sqM)
[2017-07-23] MEDS ORDERED: CLOPIDOGREL 75 MG TAB PO SCH (09:00)
[2017-07-23] MEDS: LISINOPRIL-HCTZ 20-12.5 MG 1 EACH TAB PO SCH (09:02)
[2017-07-23] MEDS: ASPIRIN 325 MG TAB PO SCH (09:02)
[2017-07-23] MEDS: ATORVASTATIN 10 MG TAB PO SCH (09:03)
[2017-07-23] MEDS: METOPROLOL TARTRATE 25 MG TAB PO SCH (09:03)
--- NOTE | 2017-07-23 09:37 | P.DS ---
Providers Date of admission: 07/21/17 15:08 Attending physician: Marilyn Mensah Consults: 07/20/17 11:29 Consult Physician Urgent Consulting Provider: Cardiology Dotty Consult Reason/Comments: Unstable angina Do you want consulting provider notified?: Yes 07/22/17 11:31 Consult Physician Routine Consulting Provider: Elizabeth Storm Consult Reason/Comments: Post Interventional patient Do you want consulting provider notified?: Already Contacted Primary care physician: Arthur Acosta [facility] Course: This is 72 years old male who presented to the hospital with chest pain. Patient has history of coronary artery disease and open heart surgery in the past and patient underwent went stress testing which turned to be positive and patient was taken to the Thermal Intelligence Analyst which showed severe disease and left circumflex was stented patient was kept in the hospital for 24 hours for further monitoring and evaluation. Patient continued to be mechanically stable. From the medical standpoint and was discharged home to follow-up with the cardiology and scheduled appointment and with his primary care physician in 3 days. Patient was discharged in stable condition Plan - Discharge Summary Discharge Rx Participant: No New Discharge Prescriptions: No Action Aspirin EC [Ecotrin Low Dose] 81 mg PO DAILY Simvastatin [Zocor] 10 mg PO DAILY Metoprolol Tartrate [Lopressor] 25 mg PO DAILY Lisinopril-Hctz 20-12.5 mg [Zestoretic 20-12.5] 1 tab PO DAILY Discharge Medication List Aspirin EC [Ecotrin Low Dose] 81 mg PO DAILY 07/20/17 [History] Lisinopril-Hctz 20-12.5 mg [Zestoretic 20-12.5] 1 tab PO DAILY 07/20/17 [History ] Metoprolol Tartrate [Lopressor] 25 mg PO DAILY 07/20/17 [History] Simvastatin [Zocor] 10 mg PO DAILY 07/20/17 [History] Follow up Appointment(s)/Referral(s): Arthur Acosta MD [Primary Care Provider] - 07/25/17 11:00 am (With Krystyna Oakley NP.) Keagan Miller MD [STAFF PHYSICIAN] - 07/29/17 2:45 pm Patient Instructions/Handouts: *Surgery [facility] - After Heart Catheterization - Die Cast Supervisor Instructions, Coronary Artery Disease (DC), Left Heart Catheterization (DC), Heart Healthy Diet (DC) Activity/Diet/Wound Care/Special Instructions: No bowling until cleared by cardiology with office visit.
[2017-07-23 10:31] VITALS: TEMP 97
--- NOTE | 2017-07-23 11:14 | P.PN ---
Subjective Progress Note Date: 07/23/17 Principal diagnosis: Chest pain This is a 71-year-old gentleman with known history of coronary artery disease and prior bypass surgery, hypertension, hyperlipidemia who presented to the hospital with symptoms of chest discomfort. He underwent a Lexiscan stress test which revealed pharmacologically induced left ventricular myocardial ischemia along the inferior wall. Patient was then taken to the cardiac catheterization lab where he underwent angioplasty with stenting of the protected left main and proximal left circumflex artery. EKG this morning shows normal sinus rhythm with no changes from post-PCI. Patient feels well, denies any chest pain or difficulty in breathing. Blood pressure 150/68 heart rate in the 80s, 98% on room air. Creatinine this morning 0.8. Objective - Vital Signs Vital signs: Vital Signs Temp 97 F L 07/23/17 08:00 Pulse 82 07/23/17 08:00 Resp 16 07/23/17 08:00 BP 150/68 07/23/17 08:00 Pulse Ox 98 07/23/17 08:00 Intake & Output 07/22/17 07/23/17 07/23/17 18:59 06:59 18:59 Intake Total 332.79 180 Balance 332.79 180 Weight 88.9 kg 88.4 kg Intake: IV 92.79 Oral 240 180 Other: Voiding Method Toilet Toilet - Exam PHYSICAL EXAMINATION: HEENT: Head is atraumatic, normocephalic. Pupils equal, round. Neck is supple. There is no elevated jugular venous pressure. HEART EXAMINATION: Heart S1, S2 normal. No murmur or gallop heard. CHEST EXAMINATION: Lungs are clear to auscultation and precussion. No chest wall tenderness is noted on palpation or with deep breathing. ABDOMEN: Soft, nontender. Bowel sounds are heard. No organomegaly noted. Right groin soft, no evidence of any hematoma. EXTREMITIES: 2+ peripheral pulses with no evidence of peripheral edema and no calf tenderness noted. NEUROLOGIC patient is awake, alert and oriented -3. . - Labs CBC & Chem 7: 07/20/17 10:16 07/23/17 05:59 Assessment and Plan Plan: Assessment and plan #1 chest pain status post angioplasty and stenting of protected left main and circumflex artery #2 positive Lexiscan stress test #3 known history of coronary artery disease with prior bypass surgery #4 hypertension # 5 hyperlipidemia Plan From cardiology's perspective, patient may be able to be discharged home today. We will make him a follow-up appointment in the office to see Dr. Avilez. Patient will be discharged home on aspirin 81 mg daily, Lipitor 80 mg daily, Plavix 75 mg daily, lisinopril hydrochlorothiazide 2 tablets daily, metoprolol tartrate 25 mg daily, we will also add Norvasc 5 mg to the patient's medication regime, nitroglycerin sublingual as needed for chest pain. Patient has been provided prescriptions for all of the above medications and he has been educated regarding them as well. DNP note has been reviewed, I agree with a documented findings and plan of care. Patient was seen and examined.
[2017-07-23 13:07] VITALS: BP 147/78; PULSE 70
== END 2017-07-23 13:45 | disposition home or self-care (01) | DRG 247 ==
LOC: EC 09:53 → 3OBS 11:29 → OBSVTOIN 07-21 15:08 → 6SEL 07-21 19:10
PROVIDERS: ADMIT Family Medicine; ATTEND Family Medicine
PROC: B2131ZZ Fluoroscopy of Multiple Coronary Artery Bypass Grafts using Low Osmolar Contrast (ICD-10-PCS; 2017-07-22)
PROC: B2181ZZ Fluoroscopy of Left Internal Mammary Bypass Graft using Low Osmolar Contrast (ICD-10-PCS; 2017-07-22)
PROC: B3101ZZ Fluoroscopy of Thoracic Aorta using Low Osmolar Contrast (ICD-10-PCS; 2017-07-22)
PROC: B240ZZ3 Ultrasonography of Single Coronary Artery, Intravascular (ICD-10-PCS; 2017-07-22)
PROC: 027034Z Dilation of Coronary Artery, One Artery with Drug-eluting Intraluminal Device, Percutaneous Approach (ICD-10-PCS; principal; 2017-07-22 09:44)
PROC: 4A023N7 Measurement of Cardiac Sampling and Pressure, Left Heart, Percutaneous Approach (ICD-10-PCS; 2017-07-22 09:44)
PROC: B2161ZZ Fluoroscopy of Right and Left Heart using Low Osmolar Contrast (ICD-10-PCS; 2017-07-22 09:44)
DX: I25.110 Atherosclerotic heart disease of native coronary artery with unstable angina pectoris (principal); I25.82 Chronic total occlusion of coronary artery; I11.9 Hypertensive heart disease without heart failure; J44.9 Chronic obstructive pulmonary disease, unspecified; I45.10 Unspecified right bundle-branch block; E78.5 Hyperlipidemia, unspecified; I25.2 Old myocardial infarction; Z95.1 Presence of aortocoronary bypass graft; Z79.82 Long term (current) use of aspirin; Z79.899 Other long term (current) drug therapy; Z90.49 Acquired absence of other specified parts of digestive tract
CPT/HCPCS: 36415; 71020; 78452; 80053; 80061; 82550; 82553; 82565; 83036; 83735; 84443; 84484; 85025; 85610; 85730; 93005; 93017; 93306; 93459; 93567; 94760; 96365; 96375; 96376; 99291

== ENCOUNTER 2019-07-30 17:27 | Emergency (ER) | payer MEDICARE, BC ==
[2019-07-30 17:33] VITALS: TEMP 97.9
[2019-07-30] MEDS ORDERED: hydrALAZINE HCL 20 MG/ML 1 ML VIAL IVP STA (17:42)
[2019-07-30] MEDS ORDERED: MORPHINE SULFATE 4 MG/ML SYRINGE IV STA (17:42)
[2019-07-30 18:16] LABS: Basophils # (A) 0.1 k/uL (0-0.2); Basophils % (A) 1 %; Eosinophils # (A) 0.1 k/uL (0-0.7); Eosinophils % (A) 1 %; HCT 44.7 % (39.0-53.0); HGB 15.6 gm/dL (13.0-17.5); Lymphocytes # (A) 2.4 k/uL (1.0-4.8); Lymphocytes % (A) 24 %; MCHC 34.8 g/dL (31.0-37.0); MCV 94.9 fL (80.0-100.0); Monocytes # (A) 0.6 k/uL (0-1.0); Monocytes % (A) 6 %; Neutrophils # (A) 6.5 k/uL (1.3-7.7); Neutrophils % (A) 66 %; Platelet Count 216 k/uL (150-450); RBC 4.71 m/uL (4.30-5.90); RDW 12.2 % (11.5-15.5); WBC 9.9 k/uL (3.8-10.6)
[2019-07-30 18:26] LABS: INR 0.9 (<1.2); Partial Thromboplastin Time 25.4 sec (22.0-30.0); Prothrombin Time 10.2 sec (9.0-12.0)
--- NOTE | 2019-07-30 18:26 | ED ---
Chest Pain HPI - General Chief Complaint: Recheck/Abnormal Lab/Rx Stated Complaint: Back pain Time Seen by Provider: 07/30/19 17:38 Source: patient, family, RN notes reviewed, old records reviewed Mode of arrival: wheelchair Limitations: physical limitation - History of Present Illness Initial Comments: This is a 73-year-old male the ER he presents today for evaluation of chest pain is severely elevated blood pressure. Patient notes his blood pressure be elevated today. Also complaining again of chest pain. Heart ratelow. Patient has also pain in his back. Patient has history of high blood pressure high cholesterol CAD with prior ID. Symptoms all began today. Patient does not take his blood pressure frequently and is been taking all medication as prescribed MD Complaint: chest pain, other (to back) -: hour(s) Onset: other (Pain began after bending down) Pain Location: substernal Pain Radiation: back Severity: moderate Severity scale (1-10): 5 Quality: aching Consistency: constant Improves With: nothing Worsens With: nothing Anginal Symptoms: nausea, dyspnea Other Symptoms: palpitations Treatments Prior to Arrival: none - Related Data Home Medications Medication Instructions Recorded Confirmed Aspirin EC [Ecotrin Low Dose] 81 mg PO DAILY 07/20/17 07/20/17 Lisinopril-Hctz 20-12.5 mg 1 tab PO DAILY 07/20/17 07/20/17 [Zestoretic 20-12.5] Metoprolol Tartrate [Lopressor] 25 mg PO DAILY 07/20/17 07/20/17 Previous Rx's Medication Instructions Recorded Atorvastatin [Lipitor] 80 mg PO DAILY #30 tab 07/23/17 Clopidogrel [Plavix] 75 mg PO DAILY #30 tab 07/23/17 Nitroglycerin Sl Tabs [Nitrostat] 0.4 mg SUBLINGUAL Q5M PRN #25 tab 07/23/17 Allergies Allergy/AdvReac Type Severity Reaction Status Date / Time No Known Allergies Allergy Verified 07/30/19 17:33 Review of Systems ROS Statement: Those systems with pertinent positive or pertinent negative responses have been documented in the HPI. ROS Other: All systems not noted in ROS Statement are negative. EKG Findings - EKG Comments: EKG Findings:: EKG shows sinus tach cardia rate of 56, GA 176, QRS 114, QTc 449 Past Medical History Past Medical History: Coronary Artery Disease (CAD), Chest Pain / Angina, Hyperlipidemia, Hypertension, Myocardial Infarction ([place]) History of Any Multi-Drug Resistant Organisms: None Reported Past Surgical History: Adenoidectomy, Appendectomy, Coronary Bypass/CABG, Tonsillectomy Additional Past Surgical History / Comment(s): 3 vessel CABG Past Anesthesia/Blood Transfusion Reactions: No Reported Reaction Additional Past Anesthesia/Blood Transfusion Reaction / Comment(s): no blood transfusion before Past Psychological History: No Psychological Hx Reported Smoking Status: Never smoker Past Alcohol Use History: None Reported Past Drug Use History: None Reported - Past Family History Father Additional Family Medical History / Comment(s): Brain Anurysm Mother Family Medical History: Dementia Additional Family Medical History / Comment(s): per pt a "bowel busted" General Exam Limitations: physical limitation General appearance: alert, in no apparent distress Head exam: Present: atraumatic, normocephalic, normal inspection Eye exam: Present: normal appearance, PERRL, EOMI. Absent: scleral icterus, conjunctival injection, periorbital swelling ENT exam: Present: normal exam, mucous membranes moist Neck exam: Present: normal inspection. Absent: tenderness, meningismus, lymphadenopathy Respiratory exam: Present: normal lung sounds bilaterally. Absent: respiratory distress, wheezes, rales, rhonchi, stridor Cardiovascular Exam: Present: regular rate, normal rhythm, normal heart sounds. Absent: systolic murmur, diastolic murmur, rubs, gallop, clicks GI/Abdominal exam: Present: soft, normal bowel sounds. Absent: distended, tenderness, guarding, rebound, rigid Extremities exam: Present: normal inspection, full ROM, normal capillary refill. Absent: tenderness, pedal edema, joint swelling, calf tenderness Back exam: Present: normal inspection Neurological exam: Present: alert, oriented X3, CN II-XII intact Psychiatric exam: Present: normal affect, normal mood Skin exam: Present: warm, dry, intact, normal color. Absent: rash Course Vital Signs 07/30/19 07/30/19 07/30/19 17:30 18:30 19:00 Temperature 97.9 F Pulse Rate 58 L 56 L 62 Respiratory 18 10 L 8 L Rate Blood Pressure 245/100 205/87 167/73 O2 Sat by Pulse 100 99 98 Oximetry 07/30/19 19:30 Temperature Pulse Rate 60 Respiratory 9 L Rate Blood Pressure 177/76 O2 Sat by Pulse 98 Oximetry - Reevaluation(s) Reevaluation #1: 07/30/19 20:02 Records reviewed Reevaluation #2: 07/30/19 20:02 Patient with family at bedside now states symptoms again began after bowling tonight. Blood sugar still running mildly high though much improved here in the ER denying any complaints currently of pain Reevaluation #3: 07/30/19 20:02 Patient given choice for observation overnight for blood pressure monitoring and cardiology, patient states he would rather be discharged home Chest Pain MDM - MDM 73 male the ER for evaluation of back pain, episode better with elevated blood pressure blood sugar pressure home. Patient's blood pressure is now much improved here in the ER is asymptomatic able and without difficulty patient denying chest pain or shortness of breath and will be discharged home Disposition Clinical Impression: Hypertension, Back pain Disposition: HOME SELF-CARE Condition: Good Instructions (If sedation given, give patient instructions): Hypertension (ED), Back Pain (ED) Is patient prescribed a controlled substance at d/c from ED?: No Referrals: Arthur Acosta MD [Primary Care Provider] - 1-2 days
[2019-07-30 18:35] LABS: ALT 18 U/L (21-72); AST 30 U/L (17-59); African American GFR (CKD) >90 (>60 ml/min/1.73 sqM); Albumin 4.4 g/dL (3.5-5.0); Alkaline Phosphatase 96 U/L (38-126); Anion Gap 11 mmol/L; Blood Urea Nitrogen 14 mg/dL (9-20); Calcium 9.4 mg/dL (8.4-10.2); Carbon Dioxide 25 mmol/L (22-30); Chloride 99 mmol/L (98-107); Glucose 87 mg/dL (74-99); Potassium 4.3 mmol/L (3.5-5.1); Sodium 135 mmol/L (137-145); Total Bilirubin 0.5 mg/dL (0.2-1.3); Total Protein 7.8 g/dL (6.3-8.2)
--- NOTE | 2019-07-30 19:50 | CT ---
EXAMINATION TYPE: CT angio thor/abd pel aorta DATE OF EXAM: 07/30/2019 COMPARISON: None HISTORY: Back pain. CT DLP: 1961.3 mGycm. Automated Exposure Control for Dose Reduction was Utilized. CONTRAST: CT scan of the thorax, abdomen and pelvis is performed without and with IV Contrast, patient injected with 100ml mL of Isovue 370. There are 3-D post processed images. FINDINGS: Thoracic aorta is atheromatous. There is no thoracic aortic aneurysm or dissection. There is normal c ontrast opacification of the pulmonary arteries. There are no filling defects. There is no mediastina l adenopathy. There are no hilar masses. Heart is slightly enlarged. There is no evidence of a pulmonary mass. There is mild coarsening of interstitial markings. There is no pleural effusion. There is patency of the celiac artery and superior mesenteric artery. There is bilateral patency of t he renal arteries. There is mild plaque formation at the origin of the renal arteries. There is bilat eral patency of the iliac and femoral arteries. There is a minimal 3 cm fusiform aneurysm of the lowe r abdominal aorta. There is no evidence of abdominal aortic dissection. Liver spleen stomach pancreas gallbladder appear normal. Kidneys have normal size and contour. There is no hydronephrosis. Bladder distends smoothly. There is no inguinal hernia. Prostate is enlarged and measures 5.8 cm. The re is no inguinal hernia. There is no ascites or free air. There is no free fluid in the pelvis. Ther e is no sign of a bowel obstruction. There is no mesenteric edema. There is multilevel spondylotic ch dipak in the thoracic and lumbar spine. I see no bony destructive process. 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 No evidence of pulmonary embolism. No evidence of arteria l dissection. No evidence of pulmonary embolism. Mild pulmonary fibrotic changes.
[2019-07-30] MEDS ORDERED: ENALAPRILAT 1.25 MG/ML 1 ML VIAL IVP STA (20:01)
[2019-07-30 20:56] VITALS: BP 177/83; PULSE 62; RESP 20
== END 2019-07-30 21:06 | disposition home or self-care (01) ==
LOC: EC 17:27
DX: I10 Essential (primary) hypertension (principal); M54.9 Dorsalgia, unspecified; I25.119 Atherosclerotic heart disease of native coronary artery with unspecified angina pectoris; E78.5 Hyperlipidemia, unspecified; E78.00 Pure hypercholesterolemia, unspecified; I25.2 Old myocardial infarction; Z79.82 Long term (current) use of aspirin; Z79.899 Other long term (current) drug therapy; Z95.1 Presence of aortocoronary bypass graft
CPT/HCPCS: 36415; 93005; 83880; 80053; 84484; 85025; 85610; 85730; 71275; 74174; 99285; 96374; 96375 ×2; J2270; J0360; Q9967

== ENCOUNTER 2021-06-11 23:39 | Observation (INO) | payer MEDICARE, BC ==
[2021-06-12] MEDS ORDERED: DIPH,PERTUS(ACELL)TETVAC-LF 0.5 ML VIAL IM ONE (00:01)
[2021-06-12] MEDS ORDERED: BACITRACIN OINT 1 EACH PACKET TOPICAL STA (00:01)
[2021-06-12] MEDS ORDERED: LIDOCAINE 1% INJ 10MG/ML (20 ML MDV) SQ ONE (00:01)
--- NOTE | 2021-06-12 00:12 | ED ---
General Adult HPI - General Chief complaint: Fall Stated complaint: Fall Time Seen by Provider: 06/11/21 23:40 Source: EMS Mode of arrival: EMS Limitations: altered mental status, physical limitation - History of Present Illness Initial comments: 75 year-old male patient presents to the emergency department for evaluation after a fall at home. Patient has dementia and is a poor historian. States that he got up to go to the bathroom and was moving too fast. States he lost his balance and fell backward into the closet door. He landed on his buttocks. She was unable to get him up so called EMS, they brought him in for evaluation. Patient does report some neck pain. Is also reporting right middle finger pain. He did sustain some skin tears to the bilateral elbows. Patient denies any headache, back pain, chest pain, shortness of breath, dizziness, weakness, abdominal pain, nausea, vomiting, or difficulties with bowel movements or urination. - Related Data Home Medications Medication Instructions Recorded Confirmed Aspirin EC [Ecotrin Low Dose] 81 mg PO DAILY 07/20/17 07/30/19 Metoprolol Tartrate [Lopressor] 25 mg PO BID 07/20/17 07/30/19 Atorvastatin [Lipitor] 10 mg PO DAILY 07/30/19 07/30/19 Donepezil [Aricept] 10 mg PO HS 07/30/19 07/30/19 hydroCHLOROthiazide [Hydrodiuril] 25 mg PO DAILY 07/30/19 07/30/19 lisinopriL 30 mg PO DAILY 07/30/19 07/30/19 Previous Rx's Medication Instructions Recorded Nitroglycerin Sl Tabs [Nitrostat] 0.4 mg SUBLINGUAL Q5M PRN #25 tab 07/23/17 Cephalexin [Keflex] 500 mg PO BID #6 cap 06/12/21 Allergies Allergy/AdvReac Type Severity Reaction Status Date / Time No Known Allergies Allergy Verified 06/11/21 23:44 Review of Systems ROS Statement: Those systems with pertinent positive or pertinent negative responses have been documented in the HPI. ROS Other: All systems not noted in ROS Statement are negative. Past Medical History Past Medical History: Coronary Artery Disease (CAD), Chest Pain / Angina, Hyperlipidemia, Hypertension, Myocardial Infarction ([place]) History of Any Multi-Drug Resistant Organisms: None Reported Past Surgical History: Adenoidectomy, Appendectomy, Coronary Bypass/CABG, Tonsillectomy Additional Past Surgical History / Comment(s): 3 vessel CABG Past Anesthesia/Blood Transfusion Reactions: No Reported Reaction Additional Past Anesthesia/Blood Transfusion Reaction / Comment(s): no blood transfusion before Past Psychological History: No Psychological Hx Reported Past Alcohol Use History: None Reported Past Drug Use History: None Reported - Past Family History Father Additional Family Medical History / Comment(s): Brain Anurysm Mother Family Medical History: Dementia Additional Family Medical History / Comment(s): per pt a "bowel busted" General Exam Limitations: altered mental status, physical limitation General appearance: alert, in no apparent distress, other (This is a well- developed, well-nourished elderly male patient in no acute distress. Vital signs upon presentation are temperature 97.4F, pulse 58, respirations 18, blood pressure 193/84, pulse ox 99% on room air.) Head exam: Present: atraumatic, normocephalic, normal inspection Eye exam: Present: normal appearance, PERRL, EOMI. Absent: scleral icterus, conjunctival injection, nystagmus, periorbital swelling ENT exam: Present: normal exam, mucous membranes moist Neck exam: Present: normal inspection. Absent: tenderness, meningismus, full ROM (C-collar in place), lymphadenopathy Respiratory exam: Present: normal lung sounds bilaterally. Absent: respiratory distress, wheezes, rales, rhonchi, stridor Cardiovascular Exam: Present: regular rate, normal rhythm, normal heart sounds. Absent: systolic murmur, diastolic murmur, rubs, gallop, clicks GI/Abdominal exam: Present: soft, normal bowel sounds. Absent: distended, tenderness, guarding, rebound, rigid Extremities exam: Present: full ROM, normal capillary refill, other (There is deformity noted to the distal phalanx of the right middle finger, 3cm laceration noted to the palmar surface of the distal middle finger. There are skin tears noted to the bilateral extensor elbow. Skin is otherwise pink, warm, dry. Cap refill less than 3 seconds. Radial pulses 2+.). Absent: normal inspection, tenderness, pedal edema, joint swelling, calf tenderness Neurological exam: Present: alert, oriented X3, CN II-XII intact Psychiatric exam: Present: normal affect, normal mood Skin exam: Present: warm, dry, intact, normal color. Absent: rash Course Vital Signs 06/11/21 06/12/21 23:41 00:52 Temperature 97.4 F L Pulse Rate 58 L Respiratory 18 Rate Blood Pressure 193/84 166/73 O2 Sat by Pulse 99 Oximetry Procedures - Laceration Laceration #1 Consent Obtained: verbal consent Indication: laceration Site: hand (Right middle finger) Size (cm): 3 Description: linear Depth: simple, single layer Anesthetic Used: lidocaine 1% Anesthesia Technique: local infiltration Amount (mls): 2 Pre-repair: irrigated extensively Type of Sutures: nylon Size of Sutures: 5-0 Number of Sutures: 5 Technique: simple, interrupted Patient Tolerated Procedure: well, no complications - Orthopedic Joint Reduction Joint #1 Consent Obtained: verbal consent Side: right Joint Reduction Location: finger Analgesia: none Technique Used: direct manipulation Post-Reduction Neuro Exam: intact Post-Reduction Vascular Exam: intact Post Reduction X-Ray Obtained: No Splint Applied: Yes (Finger splint) Patient Tolerated Procedure: well, no complications - Orthopedic Splinting/Casting Injury #1 Side: right Upper Extremity Injury Location: finger Upper Extremity Immobilizer: finger (other) Medical Decision Making - Medical Decision Making 75 old male patient presented to the emergency department today for evaluation of skin tears to the bilateral elbow and right middle finger injury after experiencing a fall. Patient did report having some neck pain and was wearing a c-collar. He is neurologically intact, alert [address] brain C-spine were negative. X-ray of the right middle finger did reveal dislocation to the right distal phalanx. There was a 3 cm laceration. Joint was reduced. Laceration was repaired. Repeat x-ray does show satisfactory reduction. Finger splint applied. He'll be started on Keflex for prevention of infection. They're educated regarding signs or symptoms of infection, wound care, and suture adilene salud in 7 days. Return parameters discussed in detail. verbalizes understanding and agrees with this plan. Case discussed with my attending Dr. Salgado. - Radiology Data Radiology results: report reviewed, image reviewed 3 views of the right middle finger obtained. Report was reviewed in its entirety. Impression by Dr. Higgins shows posterior dislocation of the distal phalanx of the middle finger right hand. CT brain and C-spine without contrast was obtained. Report was reviewed in its entirety. Impression by Dr. Higgins shows cervical multilevel spondylotic changes without fracture. No significant disc space narrowing. Mild cerebral atrophy and chronic white matter changes. No acute intracranial abnormality. Reviewed repeat right middle finger x-ray does show satisfactory reduction. Disposition Clinical Impression: Dislocation of right middle finger, Laceration of right middle finger, Skin tear of right elbow without complication, Skin tear of left elbow without complication Disposition: HOME SELF-CARE Condition: Good Instructions (If sedation given, give patient instructions): Care For Your Stitches (ED), Laceration (ED), Finger Dislocation (ED), Skin Tear (ED) Additional Instructions: Keep wounds clean and dry. Cleanse twice daily with warm water and antibacterial soap. Apply antibiotic ointment. Avoid submerging hand in water. Take antibiotic one pill twice daily for 5 days. Follow-up with the primary care physician for recheck in 1-2 days. Return for any new, worsening, or concerning symptoms. Prescriptions: Cephalexin [Keflex] 500 mg PO BID #6 cap Is patient prescribed a controlled substance at d/c from ED?: No Referrals: Arthur Acosta MD [Primary Care Provider] - 1-2 days
[2021-06-12] MEDS ORDERED: MORPHINE SULFATE 2 MG/ML SYRINGE IVP STA (00:16)
--- NOTE | 2021-06-12 00:37 | XR ---
EXAMINATION TYPE: XR finger RT DATE OF EXAM: 06/12/2021 COMPARISON: NONE HISTORY: Deformity. Pain. TECHNIQUE: 3 views FINDINGS: There is posterior dislocation of the DIP joint of the middle finger right hand. I see no d efinite fracture line. The PIP joint is intact. IMPRESSION: Posterior dislocation of the distal phalanx of the middle finger right hand.
--- NOTE | 2021-06-12 00:45 | CT ---
EXAMINATION TYPE: CT brain jessica wo con DATE OF EXAM: 06/12/2021 COMPARISON: Fall. Neck pain HISTORY: fall/neck pain. Pt. has dementia. no prior on PACS CT DLP: 1377 mGycm Automated exposure control for dose reduction was used. Images obtained of the brain and cervical spine with no contrast. There is mild cerebral atrophy. There is no mass effect nor midline shift. There is no sign of intrac ranial hemorrhage. There is minimal hypodensity in the white matter of both frontal lobes. Calvarium is intact. The skull base is intact. There is normal aeration of the epitympanic recess bilaterally. There is fairly normal aeration of the mastoid sinuses. Cervical vertebra have normal spacing and alignment. There is anterior moderate osteophyte formation from C4 to T1 vertebra. The posterior elements are intact. Facet joints are intact. There is multilev el hypertrophic spurring in the facet joints. Prevertebral soft tissues are intact. There is rounded low-density area in the subcutaneous fat over the posterior mid cervical spine is probably sebaceous cyst. IMPRESSION: Cervical multilevel spondylotic changes without fracture. No significant disc space narrowing. Mild cerebral atrophy and chronic white matter changes. No acute intracranial abnormality.
[2021-06-12] MEDS ORDERED: CEPHALEXIN 500MG STARTER PACK 4 CAP BTL PO STA (01:17)
--- NOTE | 2021-06-12 01:45 | XR ---
EXAMINATION TYPE: XR finger RT DATE OF EXAM: 06/12/2021 COMPARISON: NONE HISTORY: Post reduction TECHNIQUE: 3 views FINDINGS: There is anatomic position of the DIP joint of the middle finger right hand. I see no fract ure line. There is probably a tiny chip fracture measuring 1 mm on the anterior base of the distal ph alanx. IMPRESSION: Anatomic reduction. Possible tiny chip fracture.
[2021-06-12] MEDS ORDERED: ONDANSETRON 4 MG/2 ML VIAL IVP PRN (02:18)
[2021-06-12] MEDS ORDERED: SODIUM CHLORIDE 0.9% 1,000 ML IV STA (02:18)
[2021-06-12] MEDS ORDERED: NALOXONE 0.4 MG/ML 1 ML VIAL IV PRN (02:18)
[2021-06-12] MEDS ORDERED: MORPHINE SULFATE 4 MG/ML SYRINGE IV PRN (02:18)
--- NOTE | 2021-06-12 02:28 | ED ---
Medical Decision Making - Medical Decision Making As patient was being discharged he was having a very difficult time walking. Took about 20 minutes just to get him to wheelchair. says this is unusual for him and she is unable to take him home like this. States that they live alone and she will be unable to help him get around. She would like him admitted. Patient will be admitted. Case again discussed with my attending Dr. Jarod hinton. - Lab Data Result diagrams: 06/12/21 02:48 06/12/21 02:48 - EKG Data -: EKG Interpreted by Me EKG Comments: EKG obtained at 0324 shows sinus bradycardia, incomplete right bundle branch block, with a ventricular rate of 48, AL interval 132, QRS duration 114, QTC 494, QTC 441. Disposition Clinical Impression: Dislocation of right middle finger, Laceration of right middle finger, Skin tear of right elbow without complication, Skin tear of left elbow without complication, Weakness Disposition: ADMITTED IP TO THIS [facility] Condition: Serious Decision to Admit Reason: Admit from EC Decision Date: 06/12/21 Decision Time: 02:28
[2021-06-12 03:05] LABS: Basophils % (A) 0 %; Eosinophils # (A) 0.1 k/uL (0-0.7); Eosinophils % (A) 1 %; HCT 37.8 % (39.0-53.0); HGB 12.8 gm/dL (13.0-17.5); Lymphocytes # (A) 1.8 k/uL (1.0-4.8); Lymphocytes % (A) 23 %; MCH 32.8 pg (25.0-35.0); MCHC 33.8 g/dL (31.0-37.0); MCV 96.8 fL (80.0-100.0); Mean Platelet Volume 7.5; Monocytes # (A) 0.5 k/uL (0-1.0); Monocytes % (A) 6 %; Neutrophils # (A) 5.2 k/uL (1.3-7.7); Neutrophils % (A) 67 %; Platelet Count 156 k/uL (150-450); RBC 3.91 m/uL (4.30-5.90); RDW 12.8 % (11.5-15.5); WBC 7.7 k/uL (3.8-10.6)
[2021-06-12 03:22] LABS: ALT 8 U/L (4-49); AST 23 U/L (17-59); African American GFR (CKD) >90 (>60 ml/min/1.73 sqM); Albumin 3.6 g/dL (3.5-5.0); Alkaline Phosphatase 107 U/L (38-126); Anion Gap 6 mmol/L; Blood Urea Nitrogen 29 mg/dL (9-20); Calcium 8.8 mg/dL (8.4-10.2); Carbon Dioxide 24 mmol/L (22-30); Chloride 108 mmol/L (98-107); Creatine Kinase 39 U/L (55-170); Glucose 101 mg/dL (74-99); Magnesium 2.1 mg/dL (1.6-2.3); Non-African American GFR(CKD) 83 (>60 ml/min/1.73 sqM); Phosphorus 3.5 mg/dL (2.5-4.5); Potassium 4.3 mmol/L (3.5-5.1); Sodium 138 mmol/L (137-145); Total Bilirubin 0.6 mg/dL (0.2-1.3); Total Protein 6.7 g/dL (6.3-8.2)
[2021-06-12] MEDS ORDERED: LORazepam 2 MG/ML INJ IV PRN (03:54)
[2021-06-12] MEDS: CEPHALEXIN 500 MG CAP PO SCH ×2 (10:02→22:58)
[2021-06-12] MEDS: SODIUM CHLORIDE 0.9% 1,000 ML IV SCH ×2 (10:02→22:15)
--- NOTE | 2021-06-12 10:59 | XR ---
EXAMINATION TYPE: XR chest 2V DATE OF EXAM: 06/12/2021 COMPARISON: 07/20/2017 TECHNIQUE: PA and lateral views submitted. HISTORY: Cough FINDINGS: The lungs are clear and there is no pneumothorax, pleural effusion, or focal pneumonia. Hyperinflat ion suggests COPD. Postoperative changes. Arthropathy of the shoulders. Diffuse osteopenia. Subsegmen carol changes at the lung bases. Underlying COPD noted. Degenerative changes of the spine. IMPRESSION: 1. No acute process. Correlate for COPD. Basilar atelectasis favored over pneumonia correlate clinica lly.
--- NOTE | 2021-06-12 12:09 | P.HPIM ---
History of Present Illness H&P Date: 06/12/21 Chief Complaint: fall HISTORY OF PRESENT ILLNESS This is a 75-year-old male patient of Dr. Acosta with past medical history of hypertension, hyperlipidemia, dementia. Patient got up to the bathroom and lost his balance and fell backwards into the closet door landing on his buttocks. His was unable to get him up and EMS was called. Patient complained of right middle finger pain and skin tears on bilateral elbows, 3 cm laceration to the right middle finger. According to the patient's , he was doing fine yesterday. He was out in the kitchen to wash dishes and he went into the bathroom and fell and was not able to stand. She thinks she had a slip and fall in the bathroom. Patient presented to [facility] emergency center and found to be afebrile, heart rate 58, blood pressure 193/84, pulse ox 99% on room air. W BC 7.7, hemoglobin 12.8, platelet count 156. Sodium 130, potassium 4.3, chloride 108, CO2 24, BUN 101. Magnesium 2.1. Liver function tests were normal. CK 39. Troponin negative. Coronavirus PCR not detected. Patient sustained laceration to the right middle finger status post 5 sutures and reduction of the right middle finger, splint application. CAT scan of the brain and cervical spine revealed mild cervical atrophy and chronic white matter changes. No acute intracranial abnormality. Cervical multilevel spondylotic changes without fracture. No significant disc space narrowing. X-ray of the right middle finger revealed dislocation at the right distal phalanx. Chest x-ray reveals no acute process. Correlate for COPD. Basilar atelectasis favored over pneumonia correlate clinically. Patient seen today in the ER waiting [facility] a bed [facility]. REVIEW OF SYSTEMS Constitutional: No fever, no chills, no night sweats. No weight change. No weakness, fatigue or lethargy. No daytime sleepiness. EENT: No headache. No blurred vision or double vision, no loss of vision. No loss of Hearing, no ringing in the ears, no dizziness. No nasal drainage or congestion. No epistaxis. No sore throat. Lungs: No shortness of breath, cough, no sputum production. No wheezing. Cardiovascular: No chest pain, no lower extremity edema. No palpitations. No paroxysmal nocturnal dyspnea. No orthopnea. No lightheadedness or dizziness. No syncopal episodes. Abdominal: No abdominal pain. No nausea, vomiting. No diarrhea. No constipation. No bloody or tarry stools.. No loss of appetite. Genitourinary: No dysuria, increased frequency, urgency. No urinary retention. Musculoskeletal: No myalgias. No muscle weakness, no gait dysfunction, no frequent falls. No back pain. No neck pain. Integumentary: No wounds, no lesions. No rash or pruritus. No unusual bruising. No change in hair or nails. Neurologic: No aphasia. No facial droop. No change in mentation. No head injury. No headache. No paralysis. No paresthesia. Psychiatric: No depression. No anxiety. No mood swings. Endocrine: No abnormal blood sugars. No weight change. No excessive sweating or thirst. No cold intolerance. MEDICAL HISTORY Hypertension Hyperlipidemia Alzheimer dementia Coronary artery disease with previous coronary artery bypass grafting Benign prostatic hypertrophy SURGICAL HISTORY CABG 3 Appendectomy Tonsillectomy and adenoidectomy SOCIAL HISTORY Is a nonsmoker, no alcohol use, illicit drug use, marijuana use.. FAMILY HISTORY Father at 78 years of age from complications of war, mother at age 80 from colon cancer. Patient has one sister that is , one sister living, one brother living. Patient has a son that at age 52 from heart attack. Patient also has one daughter with no major medical problems. PHYSICAL EXAMINATION Gen: This is a 75-year-old male, on the ER stretcher and appears to be in no acute distress. HEENT: Head is atraumatic, normocephalic. Pupils equal, round. Sclerae is anicteric. NECK: Supple. No JVD. No lymphadenopathy. No thyromegaly. LUNGS: Bilateral rhonchi. No intercostal retractions. Congested cough. HEART: Regular rate and rhythm. 2/6 systolic ejection murmur at the left sternal border. ABDOMEN: Soft. Bowel sounds are present. No masses. No tenderness. EXTREMITIES: No pedal edema. No calf tenderness. Splint to the right middle finger. NEUROLOGICAL: Patient is awake, alert and oriented x1. Cranial nerves 2 through 12 are grossly intact. ASSESSMENT AND PLAN 1. Fall status post dislocation of the right middle finger and laceration repair. Continue Keflex. 2. Gait dysfunction with generalized weakness. Consult with PT and OT. 3. Bradycardia. Hold metoprolol, start cardiac monitoring. 4. Hypertension. Continue lisinopril 30 mg daily, hold metoprolol. 5. Hyperlipidemia. Continue atorvastatin 10 mg daily. 6. Alzheimer's dementia. Continue Aricept 10 mg at bedtime, Namenda 10 mg twice daily. 7. Coronary artery disease. Continue aspirin 81 mg daily, Lipitor 10 mg daily, hold Lopressor. No complaints of chest pain. 8. Acute bronchitis. Patient on Keflex. Chest x-ray as above. 9. Benign prostatic hypertrophy. Patient placed as an observation status. DISCHARGE PLAN Subacute rehab. PT and OT. Impression and plan of care have been directed as dictated by the signing physician. Ivette Griggs nurse practitioner acting as scribe for signing physician. Past Medical History Past Medical History: Coronary Artery Disease (CAD), Chest Pain / Angina, Hyperlipidemia, Hypertension, Myocardial Infarction (CA) History of Any Multi-Drug Resistant Organisms: None Reported Past Surgical History: Adenoidectomy, Appendectomy, Coronary Bypass/CABG, Tonsillectomy Additional Past Surgical History / Comment(s): 3 vessel CABG Past Anesthesia/Blood Transfusion Reactions: No Reported Reaction Additional Past Anesthesia/Blood Transfusion Reaction / Comment(s): no blood transfusion before Past Psychological History: No Psychological Hx Reported Past Alcohol Use History: None Reported Past Drug Use History: None Reported - Past Family History Father Additional Family Medical History / Comment(s): Brain Anurysm Mother Family Medical History: Dementia Additional Family Medical History / Comment(s): per pt a "bowel busted" Medications and Allergies Home Medications Medication Instructions Recorded Confirmed Type Aspirin EC [Ecotrin Low Dose] 81 mg PO DAILY 07/20/17 06/12/21 History Metoprolol Tartrate [Lopressor] 12.5 mg PO BID 07/20/17 06/12/21 History Atorvastatin [Lipitor] 10 mg PO DAILY 07/30/19 06/12/21 History Donepezil [Aricept] 10 mg PO HS 07/30/19 06/12/21 History lisinopriL 30 mg PO DAILY 07/30/19 06/12/21 History Cephalexin [Keflex] 500 mg PO BID #6 cap 06/12/21 Rx Cyanocobalamin [Vitamin B-12] 500 mcg PO DAILY 06/12/21 06/12/21 History Memantine [Namenda] 10 mg PO BID 06/12/21 06/12/21 History Mirtazapine 7.5 mg PO HS 06/12/21 06/12/21 History Allergies Allergy/AdvReac Type Severity Reaction Status Date / Time No Known Allergies Allergy Verified 06/12/21 09:03 Physical Exam Vitals: Vital Signs Temp Pulse Resp BP Pulse Ox 06/12/21 06:44 44 L 20 145/76 98 06/12/21 04:00 48 L 16 176/82 96 06/12/21 03:00 51 L 16 158/67 97 06/12/21 01:53 98.1 F 55 L 16 175/66 100 06/12/21 00:52 166/73 06/11/21 23:41 97.4 F L 58 L 18 193/84 99 Intake and Output 06/11/21 06/12/21 06/12/21 22:59 06:59 14:59 Other: Weight 80.286 kg Results CBC & Chem 7: 06/13/21 05:39 06/13/21 05:39 Labs: Abnormal Lab Results - Last 24 Hours (Table) 06/12/21 06/12/21 Range/Units 02:48 02:48 RBC 3.91 L (4.30-5.90) m/uL Hgb 12.8 L (13.0-17.5) gm/dL Hct 37.8 L (39.0-53.0) % Chloride 108 H (98-107) mmol/L BUN 29 H (9-20) mg/dL Glucose 101 H (74-99) mg/dL Creatine Kinase 39 L (55-170) U/L
[2021-06-12] MEDS: lisinopriL 10 MG TAB PO SCH (15:37)
[2021-06-12] MEDS ORDERED: DONEPEZIL 10 MG TAB PO SCH (21:00)
[2021-06-12] MEDS ORDERED: MIRTAZAPINE 15 MG TAB PO SCH (21:00)
[2021-06-12] MEDS: MEMANTINE 10 MG TAB PO SCH (22:58)
[2021-06-13] MEDS ORDERED: hydrALAZINE HCL 20 MG/ML 1 ML VIAL IVP PRN (05:34)
[2021-06-13 06:01] LABS: Appearance,Urine Clear (Clear); Bilirubin,Urine Negative (Negative); Blood,Urine Negative (Negative); Color,Urine Yellow; Glucose,Urine (UA) Negative (Negative); Ketones,Urine Negative (Negative); Leukocyte Esterase,Urine Negative (Negative); Nitrite,Urine Negative (Negative); Protein,Urine Negative (Negative); Specific Gravity,Urine 1.022 (1.001-1.035)
[2021-06-13 06:20] LABS: African American GFR (CKD) >90 (>60 ml/min/1.73 sqM); Anion Gap 4 mmol/L; Blood Urea Nitrogen 19 mg/dL (9-20); Calcium 8.7 mg/dL (8.4-10.2); Carbon Dioxide 24 mmol/L (22-30); Chloride 111 mmol/L (98-107); Glucose 106 mg/dL (74-99); Non-African American GFR(CKD) 88 (>60 ml/min/1.73 sqM); Potassium 4.1 mmol/L (3.5-5.1); Sodium 139 mmol/L (137-145)
[2021-06-13 08:00] VITALS: BP 144/72; PULSE 62; RESP 18; TEMP 98
[2021-06-13] MEDS ORDERED: SODIUM CHLORIDE 0.9% 1,000 ML IV SCH (08:15)
[2021-06-13] MEDS ORDERED: ATORVASTATIN 10 MG TAB PO SCH (09:00)
[2021-06-13] MEDS ORDERED: CYANOCOBALAMIN 500 MCG TAB PO SCH (09:00)
[2021-06-13] MEDS ORDERED: ASPIRIN 81 MG PO SCH (09:00)
[2021-06-13] MEDS ORDERED: LEVOFLOXACIN 500 MG TAB PO SCH (09:00)
[2021-06-13] MEDS ORDERED: METOPROLOL TARTRATE 12.5 MG TAB PO SCH (09:00)
[2021-06-13] MEDS: lisinopriL 10 MG TAB PO SCH (09:08)
[2021-06-13] MEDS: MEMANTINE 10 MG TAB PO SCH (09:09)
[2021-06-13] MEDS: TOBRA-DEXAMET 0.3-0.1% OPHTH DROPS 2.5 ML BTL LEFT EYE SCH ×2 (09:12→12:21)
[2021-06-13 09:34] LABS: Basophils # (A) 0.04 X 10*3/uL (0.00-0.10); Basophils % (A) 0.6 %; Eosinophils # (A) 0.07 X 10*3/uL (0.04-0.35); Eosinophils % (A) 1.1 %; HCT 35.7 % (39.6-50.0); HGB 11.6 g/dL (13.0-17.0); Lymphocytes # (A) 1.88 X 10*3/uL (0.90-5.00); Lymphocytes % (A) 28.9 %; MCH 31.6 pg (27.0-32.0); MCHC 32.5 g/dL (32.0-37.0); MCV 97.3 fL (80.0-97.0); Monocytes # (A) 0.57 X 10*3/uL (0.20-1.00); Monocytes % (A) 8.8 %; Neutrophils # (A) 3.92 X 10*3/uL (1.80-7.70); Neutrophils % (A) 60.3 %; Platelet Count 139 X 10*3/uL (140-440); RBC 3.67 X 10*6/uL (4.40-5.60); RDW 12.6 % (11.5-14.5)
--- NOTE | 2021-06-13 10:56 | P.PN ---
Subjective Progress Note Date: 06/13/21 HISTORY OF PRESENT ILLNESS This is a 75-year-old male patient of Dr. Acosta with past medical history of hypertension, hyperlipidemia, dementia. Patient got up to the bathroom and lost his balance and fell backwards into the closet door landing on his buttocks. His was unable to get him up and EMS was called. Patient complained of right middle finger pain and skin tears on bilateral elbows, 3 cm laceration to the right middle finger. According to the patient's , he was doing fine yesterday. He was out in the kitchen to wash dishes and he went into the bathroom and fell and was not able to stand. She thinks she had a slip and fall in the bathroom. Patient presented to [facility] emergency center and found to be afebrile, heart rate 58, blood pressure 193/84, pulse ox 99% on room air. WBC 7.7, hemoglobin 12.8, platelet count 156. Sodium 130, potassium 4.3, chloride 108, CO2 24, BUN 101. Magnesium 2.1. Liver function tests were normal. CK 39. Troponin negative. Coronavirus PCR not detected. Patient sustained laceration to the right middle finger status post 5 sutures and reduction of the right middle finger, splint application. CAT scan of the brain and cervical spine revealed mild cervical atrophy and chronic white matter changes. No acute intracranial abnormality. Cervical multilevel spondylotic changes without fracture. No significant disc space narrowing. X-ray of the right middle finger revealed dislocation at the right distal phalanx. Chest x-ray reveals no acute process. Correlate for COPD. Basilar atelectasis favored over pneumonia correlate clinically. Patient seen today in the ER waiting for a bed on the [facility] floor. 06/13: Patient continues to have a congestive cough which Levaquin has been ordered for possible bronchitis versus Keflex. Patient denies having any pain and he feels good. TobraDex started for his left eye. IV fluids will be decreased. Blood pressure was high at 189/79 and patient received a dose of IV hydralazine with improvement to 144/72. Heart rate is running in the 50s and 60s and Lopressor will be resumed. Patient's daughter is at bedside and is agreeable to subacute rehab. Social work has been updated. REVIEW OF SYSTEMS Constitutional: No fever, no chills, no night sweats. Noted weight change. Noted weakness, fatigue or lethargy. Noted daytime sleepiness. EENT: No headache. No blurred vision or double vision, no loss of vision. No loss of Hearing, no ringing in the ears, no dizziness. No nasal drainage or congestion. No epistaxis. No sore throat. Lungs: No shortness of breath, noted cough, no sputum production. No wheezing. Cardiovascular: No chest pain, no lower extremity edema. No palpitations. No paroxysmal nocturnal dyspnea. No orthopnea. No lightheadedness or dizziness. No syncopal episodes. Abdominal: No abdominal pain. No nausea, vomiting. No diarrhea. No constipation. No bloody or tarry stools. No loss of appetite. Genitourinary: No dysuria, increased frequency, urgency. No urinary retention. Musculoskeletal: No myalgias. Noted muscle weakness, noted gait dysfunction, no frequent falls. No back pain. No neck pain. Integumentary: No wounds, no lesions. No rash or pruritus. No unusual b ruising. No change in hair or nails. Neurologic: No aphasia. No facial droop. No change in mentation. No head injury. No headache. No paralysis. No paresthesia. Psychiatric: No depression. No anxiety. No mood swings. Endocrine: No abnormal blood sugars. No weight change. PHYSICAL EXAMINATION Gen: This is a 75-year-old male, resting in bed and appears to be in no acute distress. Daughter is at bedside. HEENT: Head is atraumatic, normocephalic. Pupils equal, round. Sclerae is anicteric. NECK: Supple. No JVD. No lymphadenopathy. No thyromegaly. LUNGS: Bilateral rhonchi. No intercostal retractions. Congested cough. HEART: Regular rate and rhythm. 2/6 systolic ejection murmur at the left sternal border. ABDOMEN: Soft. Bowel sounds are present. No masses. No tenderness. EXTREMITIES: No pedal edema. No calf tenderness. Splint to the right middle finger. NEUROLOGICAL: Patient is awake, alert and oriented x1. Cranial nerves 2 through 12 are grossly intact. ASSESSMENT AND PLAN 1. Fall status post dislocation of the right middle finger and laceration repair. 2. Gait dysfunction with generalized weakness. 3. Bradycardia. 4. Hypertension. 5. Hyperlipidemia. 6. Alzheimer's dementia. 7. Coronary artery disease. 8. Acute bronchitis. 9. Benign prostatic hypertrophy. . DISCHARGE PLAN Subacute rehab. Impression and plan of care have been directed as dictated by the signing physician. Ivette Griggs nurse practitioner acting as scribe for signing physician. Objective - Vital Signs Vital signs: Vital Signs Temp 98.2 F 06/13/21 05:45 Pulse 51 L 06/13/21 05:45 Resp 20 06/12/21 20:09 BP 189/79 06/13/21 05:45 Pulse Ox 95 06/13/21 05:45 Intake & Output 06/12/21 06/13/21 06/13/21 18:59 06:59 18:59 Intake Total 240 Output Total 400 Balance -160 Weight 80.286 kg Intake: Oral 240 Output: Urine 400 Other: Voiding Method External Catheter # Voids 1 - Labs CBC & Chem 7: 06/13/21 05:39 06/13/21 05:39 Labs: Abnormal Lab Results - Last 24 Hours (Table) 06/13/21 Range/Units 05:39 Chloride 111 H (98-107) mmol/L Glucose 106 H (74-99) mg/dL
--- NOTE | 2021-06-13 11:01 | P.DS ---
Providers Date of admission: 06/12/21 02:18 Expected date of discharge: 06/13/21 Attending physician: Arthur Acosta Primary care physician: Arthur Acosta [facility] Course: HISTORY OF PRESENT ILLNESS This is a 75-year-old male patient of Dr. cAosta with past medical history of hypertension, hyperlipidemia, dementia. Patient got up to the bathroom and lost his balance and fell backwards into the closet door landing on his buttocks. His was unable to get him up and EMS was called. Patient complained of right middle finger pain and skin tears on bilateral elbows, 3 cm laceration to the right middle finger. According to the patient's , he was doing fine yesterday. He was out in the kitchen to wash dishes and he went into the bathroom and fell and was not able to stand. She thinks she had a slip and fall in the bathroom. Patient presented to [facility] emergency center and found to be afebrile, heart rate 58, blood pressure 193/84, pulse ox 99% on room air. WBC 7.7, hemoglobin 12.8, platelet count 156. Sodium 130, potassium 4.3, chloride 108, CO2 24, BUN 101. Magnesium 2.1. Liver function tests were normal. CK 39. Troponin negative. Coronavirus PCR not detected. Patient sustained laceration to the right middle finger status post 5 sutures and reduction of the right middle finger, splint application. CAT scan of the brain and cervical spine revealed mild cervical atrophy and chronic white matter changes. No acute intracranial abnormality. Cervical multilevel spondylotic changes without fracture. No significant disc space narrowing. X-ray of the right middle finger revealed dislocation at the right distal phalanx. Chest x-ray reveals no acute process. Correlate for COPD. Basilar atelectasis favored over pneumonia correlate clinically. Patient seen today in the ER waiting for a bed on the [facility] floor. 06/13: Patient continues to have a congestive cough which Levaquin has been ordered for possible bronchitis versus Keflex. Patient denies having any pain and he feels good. TobraDex started for his left eye. IV fluids will be decreased. Blood pressure was high at 189/79 and patient received a dose of IV hydralazine with improvement to 144/72. Heart rate is running in the 50s and 60s and Lopressor will be resumed. Patient's daughter is at bedside and is agreeable to subacute rehab. Social work has been updated. ASSESSMENT AND PLAN 1. Fall status post dislocation of the right middle finger and laceration repair. 2. Gait dysfunction with generalized weakness. 3. Bradycardia. 4. Hypertension. 5. Hyperlipidemia. 6. Alzheimer's dementia. 7. Coronary artery disease. 8. Acute bronchitis. 9. Benign prostatic hypertrophy. DISCHARGE PLAN Subacute rehab. Impression and plan of care have been directed as dictated by the signing physician. Ivette Griggs nurse practitioner acting as scribe for signing physician. Patient Condition at Discharge: Stable Plan - Discharge Summary Discharge Rx Participant: Yes New Discharge Prescriptions: New Levofloxacin [Levaquin] 500 mg PO DAILY #6 tab Tobra-Dexamet 0.3-0.1% Eye Elinor [Tobradex Ophth Susp] 1 drops LEFT EYE Q4HR #5 ml Continue Aspirin EC [Ecotrin Low Dose] 81 mg PO DAILY Metoprolol Tartrate [Lopressor] 12.5 mg PO BID Atorvastatin [Lipitor] 10 mg PO DAILY Donepezil [Aricept] 10 mg PO HS lisinopriL 30 mg PO DAILY Cyanocobalamin [Vitamin B-12] 500 mcg PO DAILY Memantine [Namenda] 10 mg PO BID Mirtazapine 7.5 mg PO HS Discharge Medication List Aspirin EC [Ecotrin Low Dose] 81 mg PO DAILY 07/20/17 [History] Metoprolol Tartrate [Lopressor] 12.5 mg PO BID 07/20/17 [History] Atorvastatin [Lipitor] 10 mg PO DAILY 07/30/19 [History] Donepezil [Aricept] 10 mg PO HS 07/30/19 [History] lisinopriL 30 mg PO DAILY 07/30/19 [History] Cyanocobalamin [Vitamin B-12] 500 mcg PO DAILY 06/12/21 [History] Memantine [Namenda] 10 mg PO BID 06/12/21 [History] Mirtazapine 7.5 mg PO HS 06/12/21 [History] Levofloxacin [Levaquin] 500 mg PO DAILY #6 tab 06/13/21 [Rx] Tobra-Dexamet 0.3-0.1% Eye Elinor [Tobradex Ophth Susp] 1 drops LEFT EYE Q4HR #5 ml 06/13/21 [Rx] Follow up Appointment(s)/Referral(s): Arthur Acosta MD [Primary Care Provider] - 1-2 days Patient Instructions/Handouts: Laceration (ED), Skin Tear (ED) Activity/Diet/Wound Care/Special Instructions: Keep wounds clean and dry. Cleanse twice daily with warm water and antibacterial soap. Apply antibiotic ointment. Avoid submerging hand in water. Take antibiotic one pill twice daily for 5 days. Follow-up with the primary care physician for recheck in 1-2 days. Return for any new, worsening, or concerning symptoms. Discharge Disposition: TRANSFER TO SNF/ECF
== END 2021-06-13 13:05 ==
LOC: EC 23:39 → 4SSUR 06-12 02:18
PROVIDERS: ADMIT Internal Medicine; ATTEND Internal Medicine
DX: S63.252A Unspecified dislocation of right middle finger, initial encounter (principal); S51.012A Laceration without foreign body of left elbow, initial encounter; S61.212A Laceration without foreign body of right middle finger without damage to nail, initial encounter; S51.011A Laceration without foreign body of right elbow, initial encounter; Z23 Encounter for immunization; W01.0XXA Fall on same level from slipping, tripping and stumbling without subsequent striking against object, initial encounter; E78.5 Hyperlipidemia, unspecified; F02.80 Dementia in other diseases classified elsewhere, unspecified severity, without behavioral disturbance, psychotic disturbance, mood disturbance, and anxiety; G30.9 Alzheimer's disease, unspecified; I10 Essential (primary) hypertension; I25.10 Atherosclerotic heart disease of native coronary artery without angina pectoris; I25.2 Old myocardial infarction; J20.9 Acute bronchitis, unspecified; J98.11 Atelectasis; Z20.822 Contact with and (suspected) exposure to COVID-19; N40.0 Benign prostatic hyperplasia without lower urinary tract symptoms; Z79.82 Long term (current) use of aspirin; Z79.899 Other long term (current) drug therapy; Z95.1 Presence of aortocoronary bypass graft
CPT/HCPCS: 96375; 12002; 90471; 96374; 99285; 26770; 93005; 97162; 97166; 80053; 80048; 82550; 83735; 84100; 84484; 85025 ×2; 81003; 87635; 73140; 71046; 72125; 70450; 90715; G0378 ×2; J0360; J2001; J2270